=== PATIENT | female | born 1945 | race Caucasian/White ===

== ENCOUNTER 2018-11-15 16:47 | Inpatient (IN) ==
--- NOTE | 2018-11-15 17:11 | Emergency Department Note ---
Disposition Clinical Impression: Frail elderly, Weakness, Hypokalemia, Hyponatremia, Abnormal liver function test, Unable to walk, Elevated TSH Disposition: Admitted As Inpatient Referrals: Maryjane Do DO [Primary Care Provider] - Forms: ED Satisfaction Letter, Work/School Release Time of Disposition: 19:57 General Adult HPI - General Chief complaint: ED General Medical Stated complaint: Legs Giving Out/Not Eating Time Seen by Provider: 11/15/18 17:08 Source: patient, family Limitations: no limitations - History of Present Illness HPI Narrative: 73-year-old female reports emergency department with her son, there is concern for general weakness. She has been progressively weaker for the last 2 weeks. The patient's son went to her house today and was concerned that she was unable to walk too well, they described bilateral lower extremity weakness with progressive fatigue. The patient's son feels she is dehydrated. The patient reports her kidneys are "leaking" describing decreased urine output and darkened urine. There is no history of chest pain acute shortness of breath abdominal pain vomiting or diarrhea. No back pain headache slurred speech unilateral arm or leg weakness or numbness facial drooping dysarthria or fever. There is no history of anticoagulant therapy. No falls or injuries. Generalized weakness is reported. Pain Scale: 0 - Related Data Home Medications Medication Instructions Recorded Confirmed ALPRAZolam [Xanax 0.5 MG Tablet] 0.5 mg PO TID PRN 06/12/15 06/12/15 Acamprosate Calcium 666 mg PO TID 06/12/15 06/12/15 Amlodipine [Amlodipine Besylate] 10 mg PO DAILY 06/12/15 06/12/15 Levothyroxine [Synthroid] 25 mcg PO 0630 06/12/15 06/12/15 Omeprazole [PriLOSEC] 20 mg PO DAILY 06/12/15 06/12/15 Potassium Chloride [Klor-Con 20 meq PO DAILY 06/12/15 06/12/15 Sprinkle] Thiamine HCl 100 mg PO DAILY 06/12/15 06/12/15 traZODone [TraZODone] 50 mg PO HS 06/12/15 06/12/15 Previous Rx's Medication Instructions Recorded Venlafaxine HCl [Venlafaxine HCl 225 mg PO DAILY 30 Days tab.er.24 06/15/15 ER] OxyCODONE/APAP 5/325 [Percocet 2 each PO Q6HR PRN #15 tablet 09/19/15 5/325 MG] Allergies Allergy/AdvReac Type Severity Reaction Status Date / Time promethazine [From Phenergan] AdvReac See Verified 09/19/15 17:40 Comments rofecoxib [From Vioxx] AdvReac See Verified 09/19/15 17:40 Comments All systems ED: reviewed and negative except as stated. Past Medical History - Past Medical History Medical history: Reports: hyperlipidemia, hypertension, thyroid disease Surgical history: Reports: cholecystectomy Psychiatric history: Reports: depression - Social History Smoking Status: Current every day smoker Smokeless Tobacco Status: No Alcohol use: Reports: heavy Drug use: Reports: none Physical Exam - General Limitations: no limitations General appearance: alert, in no apparent distress - Head Head exam: atraumatic, normocephalic, normal inspection - Eye Eye exam: Present: PERRL, EOMI, scleral icterus (Minimal icetrus) - ENT ENT exam: normal exam, normal oropharynx, mucous membranes moist, TM's normal bilaterally, normal external ear exam - Neck Neck exam: Present: normal inspection, full ROM, trachea midline. Absent: tenderness - Chest Chest inspection: Present: symmetric chest wall rise. Absent: tenderness - Respiratory Respiratory exam: Present: normal lung sounds bilaterally. Absent: respiratory distress, prolonged expiratory phase - Cardiovascular Cardiovascular exam: Present: normal rhythm, tachycardia - Abdominal Exam Abdominal exam: Present: soft, Non-Tender, normal bowel sounds. Absent: tenderness, distention, guarding, rebound, rigidity - Extremities Exam Extremities exam: Present: normal inspection, full ROM, normal capillary refill. Absent: tenderness, pedal edema, joint swelling, calf tenderness - Expanded Lower Extremity Exam Neurovascular/Tendon exam: Present: normal capillary refill. Absent: motor deficit, sensory deficit, tendon deficit, extremity cold to touch - Back Exam Back exam: Present: normal inspection, full ROM. Absent: tenderness, CVA tenderness (R), CVA tenderness (L), vertebral tenderness - Neurological Exam Neurological exam: Present: alert, oriented X3, CN II-XII intact - Psychiatric Psychiatric exam: Present: normal affect, normal mood - Skin Skin exam: Present: warm, dry, intact, other (Minimal jaundice) Course Vital Signs Temperature 98.2 F 11/15/18 16:51 Pulse Rate 119 11/15/18 16:51 Respiratory Rate 18 11/15/18 16:51 Blood Pressure 127/82 11/15/18 16:51 O2 Sat by Pulse Oximetry 96 11/15/18 16:51 Temperature 98.2 F 11/15/18 16:51 Pulse Rate 119 11/15/18 16:51 Respiratory Rate 18 11/15/18 16:51 Blood Pressure 127/82 11/15/18 16:51 O2 Sat by Pulse Oximetry 96 11/15/18 16:51 Oxygen Delivery Oxygen Delivery Room Air Medical Decision Making - MDM Narrative Medical decision making narrative: The patient has significant electrolyte abnormalities, potassium 2.5 sodium 125. She also has abnormal liver function tests acetaminophen level negative. Hepatitis panel ordered she has no abdominal pain. The patient has been generally weak and displays no focal defects chest x-ray negative. EKG shows no overt dysrhythmia or ischemia. The patient does not describe chest pain. There is no history of headache convulsion or confusion. She has just felt weak in general. Based on the patient's age, electrolyte abnormalities, inability to walk secondary to weakness, I thought it would be appropriate to admit the patient to the hospital. She and her son are both highly agreeable. I discussed case with the hospitalist on-call who has excepted the patient to his care. Lipase pending. UA pending. - Medical Records Medical records reviewed: Yes I reviewed the patient's medical records. - Lab Data Lab results reviewed: Yes I reviewed the patient's lab results. Result diagrams: 11/15/18 17:21 11/15/18 17:21 Lab Results 11/15/18 11/15/18 11/15/18 Range/Units 17:16 17:21 17:21 WBC 8.7 (4.3-11.1) K/mcL RBC 4.49 (3.82-4.97) M/mcL Hgb 14.3 (11.5-15.4) g/dL Hct 41.4 (35.3-44.9) % MCV 92.2 (83.0-100.0) fL MCH 31.8 (28.0-33.3) pg MCHC 34.5 (31.6-35.5) g/dL RDW 17.9 H (11.5-14.5) % Plt Count 232 (140-400) K/mcL MPV 9.0 L (9.4-12.4) fL Immature Gran % 1.4 (0-4) % Seg Neutrophils % 73.0 % Lymphocytes % 18.8 % Monocytes % 5.0 % Eosinophils % 0.2 % Basophils % 1.6 % Neutrophils # 6.4 (1.6-8.9) K/mcL Lymphocytes # 1.6 (0.6-4.6) K/mcL Monocytes # 0.4 (0.0-1.3) K/mcL Eosinophils # 0.0 (0.0-0.6) K/mcL Basophils # 0.1 (0.0-0.2) K/mcL Nucleated RBCs/100 WBC 1.8 H (0) /100 WBC PT (9.4-12.1) Seconds INR APTT (26.0-36.0) Seconds Sodium 125 L (136-145) mEq/L Potassium 2.5 L* (3.5-5.1) mEq/L Chloride 87 L (98-107) mEq/L Carbon Dioxide 21 L (23-29) mEq/L BUN 9 (8-23) mg/dL Creatinine 0.90 (0.60-1.20) mg/dL Est GFR ( Amer) > 60 (> 60) Est GFR (Non-Af Amer) > 60 (> 60) BUN/Creatinine Ratio 10 (6-26) Glucose 122 H (70-105) mg/dL Calculated Osmolality 260 L (280-300) Lactic Acid 2.9 H (0.5-2.2) mmol/L Calcium 8.9 (8.6-10.3) mg/dL Magnesium 1.6 (1.6-2.6) mg/dL Total Bilirubin 5.5 H (0.3-1.0) mg/dL AST 100 H (13-39) Units/L ALT 70 H (7-52) Units/L Alkaline Phosphatase 257 H (34-104) Units/L Creatine Kinase (30-223) Units/L Troponin I < 0.03 (< 0.04) ng/mL C-Reactive Protein (Less than 10) mg/L Serum Total Protein 6.5 (6.4-8.9) g/dL Albumin 3.3 L (3.5-5.7) g/dL Globulin 3.2 (2.4-3.5) g/dL Albumin/Globulin Ratio 1.0 L (1.1-2.2) TSH (0.340-5.600) mcIU/mL Free T4 (0.70-2.00) ng/dl Acetaminophen (10-20) mcg/mL Hep Bs Antigen (Nonreactive) 11/15/18 11/15/18 11/15/18 Range/Units 17:21 17:21 18:38 WBC (4.3-11.1) K/mcL RBC (3.82-4.97) M/mcL Hgb (11.5-15.4) g/dL Hct (35.3-44.9) % MCV (83.0-100.0) fL MCH (28.0-33.3) pg MCHC (31.6-35.5) g/dL RDW (11.5-14.5) % Plt Count (140-400) K/mcL MPV (9.4-12.4) fL Immature Gran % (0-4) % Seg Neutrophils % % Lymphocytes % % Monocytes % % Eosinophils % % Basophils % % Neutrophils # (1.6-8.9) K/mcL Lymphocytes # (0.6-4.6) K/mcL Monocytes # (0.0-1.3) K/mcL Eosinophils # (0.0-0.6) K/mcL Basophils # (0.0-0.2) K/mcL Nucleated RBCs/100 WBC (0) /100 WBC PT 12.7 H (9.4-12.1) Seconds INR 1.1 APTT 31.3 (26.0-36.0) Seconds Sodium (136-145) mEq/L Potassium (3.5-5.1) mEq/L Chloride (98-107) mEq/L Carbon Dioxide (23-29) mEq/L BUN (8-23) mg/dL Creatinine (0.60-1.20) mg/dL Est GFR ( Amer) (> 60) Est GFR (Non-Af Amer) (> 60) BUN/Creatinine Ratio (6-26) Glucose (70-105) mg/dL Calculated Osmolality (280-300) Lactic Acid (0.5-2.2) mmol/L Calcium (8.6-10.3) mg/dL Magnesium (1.6-2.6) mg/dL Total Bilirubin (0.3-1.0) mg/dL AST (13-39) Units/L ALT (7-52) Units/L Alkaline Phosphatase (34-104) Units/L Creatine Kinase 19 L (30-223) Units/L Troponin I (< 0.04) ng/mL C-Reactive Protein 8 (Less than 10) mg/L Serum Total Protein (6.4-8.9) g/dL Albumin (3.5-5.7) g/dL Globulin (2.4-3.5) g/dL Albumin/Globulin Ratio (1.1-2.2) TSH 17.214 H (0.340-5.600) mcIU/mL Free T4 0.97 (0.70-2.00) ng/dl Acetaminophen < 10 L (10-20) mcg/mL Hep Bs Antigen Nonreactive (Nonreactive) - Radiology Data Radiology results reviewed: Yes I reviewed the patient's radiology results. - EKG Data EKG #1 EKG shows normal: sinus rhythm Rate: tachycardia Rhythm: PVC's, other (Sinus arrhythmia)
[2018-11-15] MEDS ORDERED: 0.9 % Sodium Chloride 1,000 ML IVC ONE (17:31)
[2018-11-15 17:45] LABS: Basophils # 0.1 K/mcL (0.0-0.2); Basophils % 1.6 %; Eosinophils % 0.2 %; Hematocrit 41.4 % (35.3-44.9); Hemoglobin 14.3 g/dL (11.5-15.4); Immature Granulocytes % 1.4 % (0-4); Lymphocytes # 1.6 K/mcL (0.6-4.6); Lymphocytes % 18.8 %; Mean Corpuscular HGB Conc 34.5 g/dL (31.6-35.5); Mean Corpuscular Hemoglobin 31.8 pg (28.0-33.3); Mean Corpuscular Volume 92.2 fL (83.0-100.0); Monocytes # 0.4 K/mcL (0.0-1.3); Neutrophils # 6.4 K/mcL (1.6-8.9); Nucleated Red Blood Cells 1.8 /100 WBC (0); Platelet Count 232 K/mcL (140-400); Red Blood Count 4.49 M/mcL (3.82-4.97); Red Cell Distribution Width 17.9 % (11.5-14.5); White Blood Count 8.7 K/mcL (4.3-11.1)
[2018-11-15 17:52] LABS: INR 1.1; Prothrombin Time 12.7 Seconds (9.4-12.1)
[2018-11-15 17:55] LABS: Activated Partial Thrombo Time 31.3 Seconds (26.0-36.0)
[2018-11-15 18:04] LABS: C-Reactive Protein 8 mg/L (Less than 10); Creatine Kinase 19 Units/L (30-223)
[2018-11-15 18:10] LABS: Alanine Aminotransferase 70 Units/L (7-52); Albumin 3.3 g/dL (3.5-5.7); Alkaline Phosphatase 257 Units/L (34-104); Aspartate Amino Transferase 100 Units/L (13-39); BUN/Creatinine Ratio 10 (6-26); Bilirubin,Total 5.5 mg/dL (0.3-1.0); Blood Urea Nitrogen 9 mg/dL (8-23); Calcium 8.9 mg/dL (8.6-10.3); Carbon Dioxide 21 mEq/L (23-29); Chloride 87 mEq/L (98-107); Globulin 3.2 g/dL (2.4-3.5); Glucose 122 mg/dL (70-105); Magnesium 1.6 mg/dL (1.6-2.6); Osmolality,Calculated 260 (280-300); Potassium 2.5 mEq/L (3.5-5.1); Sodium 125 mEq/L (136-145); Total Protein 6.5 g/dL (6.4-8.9); Troponin I < 0.03 ng/mL (< 0.04); eGFR For African Americans > 60 (> 60); eGFR For Non-African Americans > 60 (> 60)
[2018-11-15 18:17] LABS: Thyroid Stimulating Hormone 17.214 mcIU/mL (0.340-5.600)
[2018-11-15] MEDS ORDERED: Potassium Effervescent 25 MEQ TABLET.EFF PO ONE (18:39)
[2018-11-15 19:17] LABS: Acetaminophen < 10 mcg/mL (10-20)
[2018-11-15 19:45] LABS: Hepatitis B Surface Antigen Nonreactive (Nonreactive)
[2018-11-15 20:14] LABS: Hepatitis C Virus Antibody Nonreactive (Nonreactive)
[2018-11-15 20:15] LABS: Hepatitis B Core IgM Nonreactive (Nonreactive)
[2018-11-15 20:17] LABS: Hepatitis A Antibody IgM Nonreactive (Nonreactive)
[2018-11-15 20:47] LABS: Lipase 24 Units/L (11-82)
[2018-11-16] MEDS ORDERED: Naloxone 0.4 MG/ML INJ IVP PRN (00:27)
[2018-11-16 00:30] LABS: Alanine Aminotransferase 59 Units/L (7-52); Albumin 2.8 g/dL (3.5-5.7); Albumin/Globulin Ratio 1.1 (1.1-2.2); Alkaline Phosphatase 211 Units/L (34-104); Aspartate Amino Transferase 85 Units/L (13-39); BUN/Creatinine Ratio 12 (6-26); Bilirubin,Total 4.9 mg/dL (0.3-1.0); Blood Urea Nitrogen 8 mg/dL (8-23); Carbon Dioxide 24 mEq/L (23-29); Chloride 92 mEq/L (98-107); Globulin 2.5 g/dL (2.4-3.5); Glucose 81 mg/dL (70-105); Osmolality,Calculated 265 (280-300); Potassium 2.8 mEq/L (3.5-5.1); Sodium 129 mEq/L (136-145); Total Protein 5.3 g/dL (6.4-8.9); eGFR For African Americans > 60 (> 60); eGFR For Non-African Americans > 60 (> 60)
--- NOTE | 2018-11-16 00:33 | Internal Med History&Physical ---
Date of Encounter: 11/15/18 Time of Encounter: 22:00 Internal Medicine - H&P: HPI Chief complaint: Weakness Admitted From: Emergency Dept Plans for Post Hospital Care: Home History of present illness: Ms. Salazar is a 73 year old female Patient presented to the emergency room with weakness. She says that her symptoms have been worsening over the last several weeks but she denies falls. She is never had symptoms like this before. She also states that she has not been eating much as there has not been very much food at home. She has also noted darkened urine color as well. She particularly feels weak with ambulation and she will also get short of breath as well. Her son who presents to the emergency room with her feels that she has become dehydrated. In the emergency room patient's initial vital signs: Temperature 98.2, pulse rate 119, Restoril rate 18, blood pressure 127/82, O2 saturation 96 on room air. CBC was within normal limits including platelet count of 232. BMP significant for sodium 125, potassium 2.5, and glucose of 122. INR 1.1 Lactic acid 2.9 Liver function tests were abnormal including a total bilirubin of 5.5, AST of 100, ALT of 70 and alkaline phosphatase of 257. Troponin was undetectable TSH elevated at 17.214 Acetaminophen level less than 10 Lipase 24 Hepatitis panel nonreactive. Chest x-ray showed no acute cardiopulmonary process EKG showed normal sinus rhythm but no ischemic changes Patient was given 1 L of normal saline and 50 mEq of by mouth potassium. She was admitted to the hospital for further management. Upon my evaluation, patient is resting comfortably in the hospital bed in no acute distress. She admits to heavy smoking of about 1 pack per day as well as heavy alcohol use of up to a 12 pack of beer daily. Her last alcoholic beverage however was 6 weeks ago. She has been a heavy drinker for many years. She denies other drug use. She denies chest pain, abdominal pain, nausea, vomiting, diarrhea and constipation. She has noticed dark urine for about 2 or 3 weeks now but no dysuria. She does have scleral icterus on exam, but denies noticing this at home. Her son is at bedside, and denies noticing jaundice as well as scleral icterus. She has a family history significant for heart disease in her brothers as well as cancer of the lung and rectal cancer. Patient is a full code. Past Med Surg Social Fam HX - Past Medical History Medical history: hyperlipidemia, hypertension, thyroid disease Psychiatric history: anxiety, depression - Past Surgical History Surgical History: cholecystectomy - Social History Smoking Status: Current every day smoker Packs per day: 1 Smokeless Tobacco Status: No Alcohol use: heavy Drug use: none - Family History Mother Living Status: Father Living Status: Internal Medicine - H&P: Meds ALPRAZolam [Xanax 0.5 MG Tablet] 0.5 mg PO TID PRN 06/12/15 [History] Amlodipine [Amlodipine Besylate] 10 mg PO DAILY 06/12/15 [History] Levothyroxine [Synthroid] 50 mcg PO 0630 06/12/15 [History] Omeprazole [PriLOSEC] 20 mg PO DAILY 06/12/15 [History] Potassium Chloride [Klor-Con Sprinkle] 20 meq PO DAILY 06/12/15 [History] Thiamine HCl 100 mg PO DAILY 06/12/15 [History] traZODone [TraZODone] 50 mg PO HS 06/12/15 [History] Venlafaxine HCl [Venlafaxine HCl ER] 225 mg PO DAILY 30 Days tab.er.24 06/15/15 [Rx] Allergy/AdvReac Type Severity Reaction Status Date / Time promethazine [From Phenergan] AdvReac See Verified 09/19/15 17:40 Comments rofecoxib [From Vioxx] AdvReac See Verified 09/19/15 17:40 Comments All Systems PM: A 10-system review of systems was performed and is negative for pertinent findings except as documented above in the HPI. - Constitutional Vitals: Temp Pulse Resp BP Pulse Ox 97.6 F 99 16 147/78 100 11/15/18 23:15 11/15/18 23:15 11/15/18 23:15 11/15/18 23:15 11/15/18 23:15 General appearance: Present: cooperative, A&O X 3, pleasant, no acute distress, answers questions appropriately Exam: - - Head Head exam: Present: normal inspection - Eye Eye exam: Present: EOMI, normal appearance, scleral icterus. Absent: sclera anicteric - Neck Neck exam general surgery: Present: full ROM - Respiratory Respiratory exam: Present: CTAB. Absent: rales, respiratory distress, rhonchi, wheezes - Cardiovascular Cardiovascular exam: Present: RRR. Absent: diastolic murmur, systolic murmur - GI/Abdominal GI/Abdominal exam: Present: normal bowel sounds, soft. Absent: tenderness - Extremities Exam Extremities exam: Present: warm, radial pulses palpable and symmetrical. Absent: calf tenderness, pedal edema, tenderness - Neurological Exam Neurological exam: Present: no focal deficits, strengths equal and symetr throughout. Absent: motor sensory deficit, facial droop, speech deficit - Skin Skin exam: Present: dry, normal color, warm Additional comments: Non-jaundiced skin appearance Internal Med - H&P Results - Labs CBC & Chem 7: 11/15/18 17:21 11/15/18 21:46 Labs: Short CBC 11/15/18 Range/Units 17:21 WBC 8.7 (4.3-11.1) K/mcL Hgb 14.3 (11.5-15.4) g/dL Hct 41.4 (35.3-44.9) % Plt Count 232 (140-400) K/mcL Neutrophils # 6.4 (1.6-8.9) K/mcL BMP 11/15/18 11/15/18 17:21 21:46 Sodium 125 L 129 L Potassium 2.5 L* 2.8 L Chloride 87 L 92 L Carbon Dioxide 21 L 24 BUN 9 8 Creatinine 0.90 0.68 Glucose 122 H 81 Calcium 8.9 8.0 L Cardiac Enzymes 11/15/18 Range/Units 17:21 Troponin I < 0.03 (< 0.04) ng/mL Liver Function 11/15/18 11/15/18 Range/Units 17:21 21:46 Total Bilirubin 5.5 H 4.9 H (0.3-1.0) mg/dL AST 100 H 85 H (13-39) Units/L ALT 70 H 59 H (7-52) Units/L Alkaline Phosphatase 257 H 211 H (34-104) Units/L Albumin 3.3 L 2.8 L (3.5-5.7) g/dL - Impressions ITS Impressions Chest X-Ray 11/15/18 17:08 IMPRESSION: No acute cardiopulmonary process. D/ / Teofilo Villaseñor MD / Teofilo Villaseñor MD Interpreting Provider: Teofilo Villaseñor MD - Assessment and Plan (1) Weakness Current Visit: Yes Status: Acute Assessment and plan: Likely secondary to malnutrition and not caring for self at home. Patient has not been taking her meds as prescribed. PT OT consult in the morning Nutrition consult in the morning emergency medical services coordinator consult in the morning Hold off on further IV fluids until urine specimen obtained. (2) Frail elderly Current Visit: Yes Status: Acute Assessment and plan: Patient has long history of smoking and alcohol use. She has not been taking her medicines and she has been not eating at home due to inability to obtain food according to the patient. PT OT consult in the morning Nutrition consult in the morning emergency medical services coordinator consult in the morning (3) Hypokalemia Current Visit: Yes Status: Acute Assessment and plan: Likely secondary to malnutrition. Patient's potassium level was 2.5 in the emergency room. She received 50 mEq of oral potassium and has corrected to 2.8. Magnesium level 1.6. Continue potassium supplementation Cardiac monitoring Repeat potassium level in the morning (4) Hyponatremia Current Visit: Yes Status: Acute Assessment and plan: Likely secondary to beer potable sergio and malnutrition. Patient received 1 L of IV fluids in the emergency room. She has not been able to give a urine specimen yet. Repeat sodium was 129 from 125. Continue to monitor sodium Hold off on IV fluid hydration until patient gives urine specimen Check urine sodium and urine osmolality Avoid correcting sodium level more than 8 points in a 24-hour period. (5) Abnormal liver function test Current Visit: Yes Status: Acute Assessment and plan: Likely secondary to chronic alcohol use, last labs from 2016 were within normal limits. Patient has scleral icterus on exam. Right upper quadrant ultrasound in the morning Consider GI consultation Continue to monitor liver function tests (6) Chronic alcohol dependence, continuous Current Visit: No Status: Acute Assessment and plan: Patient has long history of alcohol use, states her last drink was 6 weeks ago. We will continue to monitor closely for signs of withdrawal but hold off on CIWA for now. Start CIWA protocol if signs of withdrawal develop (7) Nicotine use disorder Current Visit: Yes Status: Acute Assessment and plan: Nicotine patch (8) Hypoalbuminemia Current Visit: No Status: Acute Assessment and plan: Secondary to poor by mouth intake and alcoholism. Patient also possibly has alcoholic liver damage. Nutrition consult in the morning (9) DVT prophylaxis Current Visit: No Status: Acute Assessment and plan: Subcutaneous heparin - Time Spent With Patient Total time spent is greater than 50% in coordination of care (as documented) at patient's floor/unit and/or counseling patient: Greater than 35 minutes
[2018-11-16] MEDS ORDERED: Potassium Effervescent 25 MEQ TABLET.EFF PO ONE ×2 (00:50→12:07)
[2018-11-16] MEDS: Nicotine 21 MG PATCH.TD24 TD SCH (01:57)
[2018-11-16] MEDS: *HR* Heparin 5,000 UNIT/ML VIAL SQ SCH ×2 (06:49→17:22)
[2018-11-16 07:28] LABS: Bilirubin,Urine Large (Negative); Blood,Urine Moderate (Negative); Glucose,Urine (UA) Normal (Normal); Ketones,Urine Trace mg/dL (Negative); Leukocyte Esterase,Urine Trace (Negative); Nitrite,Urine Negative (Negative); Protein,Urine Negative (Neg-Trace); Specific Gravity,Urine 1.009 (1.010-1.025); Urobilinogen,Urine >=8.0 mg/dL (Normal)
[2018-11-16 07:30] LABS: Hyaline Casts,Urine None Seen per lpf (None-Few); RBC,Urine 0-3 per hpf (0-3); Squamous Epithelial Cell,Urine Many per lpf (None-Few)
[2018-11-16 07:32] LABS: Clarity,Urine Slightly Cloudy (Clear); Color,Urine Dark Yellow (Yellow)
[2018-11-16 08:12] LABS: Bacteria,Urine Many per hpf (None-Few)
[2018-11-16 09:50] LABS: Hematocrit 35.8 % (35.3-44.9); Hemoglobin 12.8 g/dL (11.5-15.4); Mean Corpuscular HGB Conc 35.8 g/dL (31.6-35.5); Mean Corpuscular Hemoglobin 32.7 pg (28.0-33.3); Mean Corpuscular Volume 91.3 fL (83.0-100.0); Mean Platelet Volume 9.3 fL (9.4-12.4); Platelet Count 224 K/mcL (140-400); Red Blood Count 3.92 M/mcL (3.82-4.97); Red Cell Distribution Width 17.9 % (11.5-14.5); White Blood Count 7.8 K/mcL (4.3-11.1)
[2018-11-16 09:57] LABS: INR 1.1; Prothrombin Time 12.9 Seconds (9.4-12.1)
[2018-11-16 10:15] LABS: Alanine Aminotransferase 60 Units/L (7-52); Albumin 2.9 g/dL (3.5-5.7); Albumin/Globulin Ratio 1.2 (1.1-2.2); Alkaline Phosphatase 215 Units/L (34-104); Aspartate Amino Transferase 82 Units/L (13-39); BUN/Creatinine Ratio 12 (6-26); Blood Urea Nitrogen 8 mg/dL (8-23); Calcium 8.3 mg/dL (8.6-10.3); Carbon Dioxide 25 mEq/L (23-29); Chloride 94 mEq/L (98-107); Globulin 2.5 g/dL (2.4-3.5); Glucose 112 mg/dL (70-105); Osmolality,Calculated 263 (280-300); Potassium 3.5 mEq/L (3.5-5.1); Sodium 127 mEq/L (136-145); Total Protein 5.4 g/dL (6.4-8.9); eGFR For African Americans > 60 (> 60); eGFR For Non-African Americans > 60 (> 60)
--- NOTE | 2018-11-16 13:49 | Internal Med Progress Note ---
<Alyse Melton - Last Filed: 11/16/18 14:38> Hospitalist Progress Note - Encounter Date of Encounter: 11/16/18 - Exam Vitals: Temp Pulse Resp BP Pulse Ox 98 F 79 16 127/97 94 11/16/18 12:08 11/16/18 12:08 11/16/18 12:08 11/16/18 12:08 11/16/18 12:08 - Assessment and Plan (1) Hyponatremia Current Visit: Yes Status: Acute (2) Hypokalemia Current Visit: Yes Status: Acute (3) Chronic alcohol dependence, continuous Current Visit: No Status: Acute (4) DVT prophylaxis Current Visit: No Status: Acute (5) Hypoalbuminemia Current Visit: No Status: Acute (6) Frail elderly Current Visit: Yes Status: Acute (7) Weakness Current Visit: Yes Status: Acute (8) Abnormal liver function test Current Visit: Yes Status: Acute (9) Nicotine use disorder Current Visit: Yes Status: Acute - Time Spent with Patient Total time spent is greater than 50% in coordination of care (as documented) at patient's floor/unit and/or counseling patient: Internal Medicine: Result - Labs CBC & Chem 7: 11/16/18 09:27 11/16/18 09:27 Labs: Short CBC 11/15/18 11/16/18 Range/Units 17:21 09:27 WBC 8.7 7.8 (4.3-11.1) K/mcL Hgb 14.3 12.8 D (11.5-15.4) g/dL Hct 41.4 35.8 (35.3-44.9) % Plt Count 232 224 (140-400) K/mcL Neutrophils # 6.4 (1.6-8.9) K/mcL BMP 11/15/18 11/15/18 11/16/18 17:21 21:46 09:27 Sodium 125 L 129 L 127 L Potassium 2.5 L* 2.8 L 3.5 Chloride 87 L 92 L 94 L Carbon Dioxide 21 L 24 25 BUN 9 8 8 Creatinine 0.90 0.68 0.68 Glucose 122 H 81 112 H Calcium 8.9 8.0 L 8.3 L Cardiac Enzymes 11/15/18 Range/Units 17:21 Troponin I < 0.03 (< 0.04) ng/mL Liver Function 11/15/18 11/15/18 11/16/18 Range/Units 17:21 21:46 09:27 Total Bilirubin 5.5 H 4.9 H 4.0 H (0.3-1.0) mg/dL AST 100 H 85 H 82 H (13-39) Units/L ALT 70 H 59 H 60 H (7-52) Units/L Alkaline Phosphatase 257 H 211 H 215 H (34-104) Units/L Albumin 3.3 L 2.8 L 2.9 L (3.5-5.7) g/dL Urine 11/16/18 Range/Units 07:00 Urine Color Dark Yellow (Yellow) Urine Clarity Slightly Cloudy A (Clear) Urine pH 6.0 (5.0-8.0) pH Units Ur Specific [place] 1.009 L (1.010-1.025) Urine Protein Negative (Neg-Trace) mg/dL Urine Glucose (UA) Normal (Normal) mg/dL - ABG Interpretation ABG results: PT/INR, D-dimer PT 12.9 Seconds (9.4-12.1) H 11/16/18 09:27 - Impressions Impressions Chest X-Ray 11/15/18 17:08 IMPRESSION: No acute cardiopulmonary process. D/ / Teofilo Villaseñor MD / Teofilo Villaseñor MD Interpreting Provider: Teofilo Villaseñor MD Liver Ultrasound 11/16/18 09:00 IMPRESSION: 1. Hepatic steatosis is present. 2. Mildly irregular appearance of the hepatic capsule, suggestive of hepatic fibrosis or early cirrhosis. 3. Status post cholecystectomy. D/ / 11/16/2018 09:28:56 Zackary Hatfield MD / tristan Interpreting Provider: Zackary Hatfield MD Consult Discharge Plan - Plan Referrals: Maryjane Do DO [Primary Care Provider] - - Attending Attestation I examined this patient and my medical decision-making was reviewed with the Resident Physician Dr Castano. I agree with the documented findings, disposition and treatment plan as described except to the extent set forth below. Ms Salazar is admitted with dehydration, hyponatremia, malnutrition and generalized weakness awake, son at bedside. has not been eating or drinking at home due to not having anything to eat or drink. denies gi sxs as cause of poor intake. Describes dif ficulty walking due to generalized leg weakness, denies focal weakness, numbness or tingling. stating hse hasn't had beer in 6 weeks. Son at bedside notes she is at her baseline mental status but seems tired and less energetic. He was unaware she wasn't eating. She admits she has not been taking her synthroid gen- alert, awake,appears stated age eyes- pupils equal round, + scleral icterus cv- reg rate and rhythm, normal s1,s2, no murmurs appreciated, no le edema lungs- ctabl, no wheezing, rhonchi or crackles, normal resp effort on room air abd- soft, non tender, non distended, + bs, no HSM appreciated neuro- AAOx3, CN grossly intact, strength 5/5 throughout all ext, sensation to lt touch intact and equal throughout all ext Generalized weakness likley related to poor oral intake, dehydration/malnutrition and likley complicated by uncontrolled hypothroidism due to medication non compliance -pt/ot/sw/nutrition consulted, gentle ivfs today with Na level monitoring, resume synthroid Hyponatremia suspect 2/2 poor oral intake, hypovolemic hyponatremia also component of uncontrolled hypothyroidism -goal Na 133 or less by this evening, give gentle IVFs, q 4 h Na checks to avoid over correction Hypoakalemia- resolved with repletion, repeat Mag level in am Abnormal LFTs with t bili and transaminase elevation, low protein but normal INR RUQ US reviewed- suspect early cirrhosis given etoh use, no choledocholithiasis noted Hep panel neg, acetaminophen neg, does not use ASA at home -consult gi for further work up/tx recs Hypothyroidism- cont home synthroid dose as hasn't been taking, repeat level outpt with pcp for adjustments. etoh abuse- stating sober x6 weeks, monitor for s/s of etoh withdrawal in case this timeline is not accurate, oral supplements further dx and plan as noted by resident <Christina Castano - Last Filed: 11/17/18 06:35> Hospitalist Progress Note - Encounter Date of Encounter: 11/17/18 Time of Encounter: 13:48 - Subjective Interval History: Seen and examined this morning at bedside. Patient's son is present in room. Appears comfortable resting in bed. States she came to hospital because she's felt weak for awhile now and it just wasn't getting better, so decided to get checked out. Her son reports people from patient's apartment had called him with concerns that his mother was acting disoriented and confused. Admits to history of EtOH abuse, states she last drank 6 weeks ago. Denies having gone through withdrawal symptoms during this period of time, states she slowly took herself off alcohol. Denies feeling anxious or jittery at this time, no tremors. - Exam Vitals: Temp Pulse Resp BP Pulse Ox 98 F 79 16 127/97 94 11/16/18 12:08 11/16/18 12:08 11/16/18 12:08 11/16/18 12:08 11/16/18 12:08 Exam: Gen: no acute distress, appears stated age HEENT: normocephalic/atraumatic, EOMI, no scleral icterus Neck: supple, no LAD Cardio: RRR, no murmurs, +s1 and s2, no peripheral edema Pulm: CTAB, equal chest rise, no wheezes/rhonchi/rales Abd: soft, nontender, nondistended, active bowel sounds Ext: No visible deformities, no LE swelling, acyanotic, Neuro: Alert, oriented x 3, answers questions appropriately, no focal neuro deficits, CN II-XII grossly intact, moves all extremities spontaneously, no tremors Psych: doesn't appear anxious or agitated, poor eye contact, constricted affect, cooperative - Assessment and Plan (1) Weakness Current Visit: Yes Status: Acute Assessment and Plan: Most likely d/t poor oral intake, suspect this is compounded by uncontrolled hypothyroidism given that patient admits to not taking levothyroxine as prescribed and TSH found to be elevated on labs. Will restart TSH. PT/OT consulted. Nutrition consulted. (2) Hyponatremia Current Visit: Yes Status: Acute Assessment and Plan: Suspect primarily related to poor PO intake/nutritional status. Sodium 125 on admission, received 1L normal saline fluid bolus in ED. No focal neuro deficits on exam. Will avoid correcting sodium level more than 8 points in a 24-hour period. Slow infusion 1L NS at rate 75 mL/hr with sodium checks Q4H. (3) Abnormal liver function test Current Visit: Yes Status: Acute Assessment and Plan: Transaminitis, elevated total bilirubin, low protein Platelets and INR within normal limits RUQ US shows irregular appearing liver capsule suggesting hepatic fibrosis or early cirrhosis; s/p cholecystectomy Hepatitis panel non-reactive APAP level negative GI consult placed, recommendations appreciated (4) Chronic alcohol dependence, continuous Current Visit: Yes Status: Chronic Assessment and Plan: Reports last alcohol use 6 weeks ago, will start CIWA protocol for patient's safety and monitor for signs/symptoms of withdrawal Start daily multivitamin, thiamine, folate supplements (5) Hypokalemia Current Visit: Yes Status: Acute Assessment and Plan: Potassium 2.5 on admission, corrected to 3.5 after oral potassium repletion. Suspect this is related to poor PO intake, no thiazide diuretic on home med list. Magnesium level was at lower limit of normal (1.6) on admission, will replete and recheck in AM. Cardiac monitoring. (6) Hypoalbuminemia Current Visit: Yes Status: Acute Assessment and Plan: Suspect d/t poor diet/PO intake. Consult placed to nutrition. (7) Elevated TSH Current Visit: Yes Status: Acute Assessment and Plan: TSH 17.2 Free T4 of 0.97 Admits to not taking levothyroxine as prescribed May be contributing to depressed mood, poor appetite Restart home dose levothyroxine, will need repeat TSH in 8 weeks (8) Frail elderly Current Visit: Yes Status: Acute - Time Spent with Patient Total time spent is greater than 50% in coordination of care (as documented) at patient's floor/unit and/or counseling patient: Internal Medicine: Result - Labs CBC & Chem 7: 11/17/18 05:51 11/17/18 00:14 Labs: Short CBC 11/15/18 11/16/18 Range/Units 17:21 09:27 WBC 8.7 7.8 (4.3-11.1) K/mcL Hgb 14.3 12.8 D (11.5-15.4) g/dL Hct 41.4 35.8 (35.3-44.9) % Plt Count 232 224 (140-400) K/mcL Neutrophils # 6.4 (1.6-8.9) K/mcL BMP 0611/15/18 11/16/18 17:21 21:46 09:27 Sodium 125 L 129 L 127 L Potassium 2.5 L* 2.8 L 3.5 Chloride 87 L 92 L 94 L Carbon Dioxide 21 L 24 25 BUN 9 8 8 Creatinine 0.90 0.68 0.68 Glucose 122 H 81 112 H Calcium 8.9 8.0 L 8.3 L Cardiac Enzymes 11/15/18 Range/Units 17:21 Troponin I < 0.03 (< 0.04) ng/mL Liver Function 11/15/18 11/15/18 11/16/18 Range/Units 17:21 21:46 09:27 Total Bilirubin 5.5 H 4.9 H 4.0 H (0.3-1.0) mg/dL AST 100 H 85 H 82 H (13-39) Units/L ALT 70 H 59 H 60 H (7-52) Units/L Alkaline Phosphatase 257 H 211 H 215 H (34-104) Units/L Albumin 3.3 L 2.8 L 2.9 L (3.5-5.7) g/dL Urine 11/16/18 Range/Units 07:00 Urine Color Dark Yellow (Yellow) Urine Clarity Slightly Cloudy A (Clear) Urine pH 6.0 (5.0-8.0) pH Units Ur Specific [place] 1.009 L (1.010-1.025) Urine Protein Negative (Neg-Trace) mg/dL Urine Glucose (UA) Normal (Normal) mg/dL - ABG Interpretation ABG results: PT/INR, D-dimer PT 12.9 Seconds (9.4-12.1) H 11/16/18 09:27 - Impressions Impressions Chest X-Ray 11/15/18 17:08 IMPRESSION: No acute cardiopulmonary process. D/ / Teofilo Villaseñor MD / Teofilo Villaseñor MD Interpreting Provider: Teofilo Villaseñor MD Liver Ultrasound 11/16/18 09:00
[2018-11-16] MEDS: 0.9 % Sodium Chloride 1,000 ML IVC SCH (14:57)
[2018-11-16] MEDS ORDERED: *HR* LORazepam 2 MG/ML VIAL IVP PRN ×3 (16:18)
--- NOTE | 2018-11-16 16:46 | Electrocardiograph Report ---
[place] [id number] Test Date: 2018-11-15 Pat Name: Yarely Salazar Department: [id number] Room: 2NE32 Gender: F [employer]ic: : [id number] Requested By: Sam Randhawa Order Number: [id number] Reading MD: Roly Castro Measurements Intervals [place] Rate: 108 P: 52 MT: 162 QRS: 4 QRSD: 79 T: -17 QT: 350 QTc: 470 Interpretive Statements Sinus arrhythmia, PVC Ventricular premature complex Electronically Signed On 11-16-2018 16:44:16 EDT by Roly Castro
[2018-11-16] MEDS: traZODone 50 MG TABLET PO SCH (21:47)
[2018-11-17] MEDS: Nicotine 21 MG PATCH.TD24 TD SCH ×2 (00:17→23:24)
[2018-11-17] MEDS: 0.9 % Sodium Chloride 1,000 ML IVC SCH (04:23)
[2018-11-17] MEDS: Levothyroxine 25 MCG TABLET PO SCH (06:11)
[2018-11-17] MEDS: *HR* Heparin 5,000 UNIT/ML VIAL SQ SCH ×2 (06:11→18:19)
[2018-11-17 06:18] LABS: Basophils # 0.1 K/mcL (0.0-0.2); Basophils % 1.6 %; Eosinophils # 0.1 K/mcL (0.0-0.6); Eosinophils % 1.1 %; Hematocrit 33.5 % (35.3-44.9); Hemoglobin 11.5 g/dL (11.5-15.4); Immature Granulocytes % 1.3 % (0-4); Lymphocytes # 2.2 K/mcL (0.6-4.6); Lymphocytes % 35.9 %; Mean Corpuscular HGB Conc 34.3 g/dL (31.6-35.5); Mean Corpuscular Hemoglobin 32.8 pg (28.0-33.3); Mean Corpuscular Volume 95.4 fL (83.0-100.0); Mean Platelet Volume 9.2 fL (9.4-12.4); Monocytes # 0.7 K/mcL (0.0-1.3); Monocytes % 10.6 %; Neutrophils # 3.1 K/mcL (1.6-8.9); Platelet Count 178 K/mcL (140-400); Red Blood Count 3.51 M/mcL (3.82-4.97); Segmented Neutrophils % 49.5 %; White Blood Count 6.2 K/mcL (4.3-11.1)
[2018-11-17 06:39] LABS: Alanine Aminotransferase 48 Units/L (7-52); Albumin 2.7 g/dL (3.5-5.7); Albumin/Globulin Ratio 1.1 (1.1-2.2); Alkaline Phosphatase 192 Units/L (34-104); Aspartate Amino Transferase 63 Units/L (13-39); BUN/Creatinine Ratio 10 (6-26); Bilirubin,Total 2.9 mg/dL (0.3-1.0); Blood Urea Nitrogen 5 mg/dL (8-23); Calcium 7.8 mg/dL (8.6-10.3); Carbon Dioxide 26 mEq/L (23-29); Chloride 93 mEq/L (98-107); Globulin 2.4 g/dL (2.4-3.5); Glucose 101 mg/dL (70-105); Magnesium 1.5 mg/dL (1.6-2.6); Osmolality,Calculated 273 (280-300); Potassium 3.4 mEq/L (3.5-5.1); Sodium 133 mEq/L (136-145); Total Protein 5.1 g/dL (6.4-8.9); eGFR For African Americans > 60 (> 60); eGFR For Non-African Americans > 60 (> 60)
[2018-11-17] MEDS: Folic Acid 1 MG TABLET PO SCH (07:50)
[2018-11-17] MEDS: Multivit/Ca/Min/Fe/FA 1 TAB TABLET PO SCH (07:50)
--- NOTE | 2018-11-17 07:56 | Internal Med Progress Note ---
<YuliaeddieEan joyce - Last Filed: 11/17/18 14:01> Hospitalist Progress Note - Encounter Date of Encounter: 11/17/18 Time of Encounter: 08:20 - Subjective Interval History: When seen today patient denied any abdominal pain, nausea, or vomiting. She tells me that her decreased by mouth intake at home was due to not having any access to food due to being financially restricted recently. Patient says that she lives alone. Son was present in the room and inform me that he had not heard from his mother for 3 weeks. She denies any chest pain or shortness of breath. Denies any fever. Denies any cough. Denies any lower extremity swelling. - Exam Vitals: Temp Pulse Resp BP Pulse Ox 97.9 F 88 14 130/91 95 11/17/18 06:00 11/17/18 06:00 11/17/18 06:00 11/17/18 06:00 11/17/18 06:00 Exam: GENERAL APPEARANCE: Obese, alert and cooperative, and appears to be in no acute distress. HEAD: normocephalic. EYES: PERRL, EOMI. Fundi normal, vision is grossly intact. No scleral icterus. EARS: Hearing grossly intact. NOSE: No nasal discharge. THROAT: Oral cavity and pharynx normal. No inflammation, swelling, exudate, or lesions. NECK: Neck supple, non-tender without lymphadenopathy, masses or thyromegaly. CARDIAC: Normal S1 and S2. No S3, S4 or murmurs. Rhythm is regular. There is no peripheral edema, cyanosis or pallor. Extremities are warm and well perfused. Capillary refill is less than 2 seconds. No carotid bruits. LUNGS: Clear to auscultation and percussion without rales, rhonchi, wheezing or diminished breath sounds. ABDOMEN: Positive bowel sounds. Soft, nondistended, nontender. No guarding or rebound. No masses. MUSKULOSKELETAL: No joint erythema or tenderness. Normal muscular development. EXTREMITIES: No significant deformity or joint abnormality. No edema. Peripheral pulses intact. No varicosities. 5 out of 5 strength in upper and lower extremities. SKIN: Skin normal color, texture and turgor with no lesions or eruptions. No jaundice. PSYCHIATRIC: The mental examination revealed the patient was oriented to person, place, and time. - Assessment and Plan (1) Weakness Current Visit: Yes Status: Acute Assessment and Plan: Most likely d/t poor oral intake, suspect this is compounded by uncontrolled hypothyroidism given that patient admits to not taking levothyroxine as prescribed and TSH found to be elevated on labs. PT/OT consulted. Nutrition consulted. 11/17/18: Patient demonstrating good PO intake. Plan: - Continue with ensure diet. - Discontinue IV fluids - Continue with PT/OT. (2) Hyponatremia Current Visit: Yes Status: Acute Assessment and Plan: Suspect primarily related to poor PO intake/nutritional status. Sodium 125 on admission, received 1L normal saline fluid bolus in ED. No focal neuro deficits on exam. Will avoid correcting sodium level more than 8 points in a 24-hour period. Slow infusion 1L NS at rate 75 mL/hr with sodium checks Q4H. 11/17/18: Sodium level has improved to 133 from 130 yesterday. No gross neurologic symptoms on exam. Plan: - Discontinue IV fluids. Patient demonstrating good by mouth intake. - Continue to monitor sodium levels. (3) Abnormal liver function test Current Visit: Yes Status: Acute Assessment and Plan: Transaminitis, elevated total bilirubin, low protein Platelets and INR within normal limits RUQ US shows irregular appearing liver capsule suggesting hepatic fibrosis or early cirrhosis; s/p cholecystectomy Hepatitis panel non-reactive APAP level negative GI consult placed, recommendations appreciated 11/17/18: GI recommends complete liver workup (AFP, alpha-1 antitrypsin, AVDIM, ANCA, ceruloplasmin, F actin, ferritin, AMA, fibrosis score). (4) Hepatic steatosis Current Visit: Yes Status: Acute Assessment and Plan: GI recommends moderate caloric restriction of 500-700 Kcal/day and to eliminate or significantly reduce saturated fatty acids and high fructose corn syrup from diet. Chest X-Ray 11/15/18 17:08 IMPRESSION: No acute cardiopulmonary process. D/ / Teofilo Villaseñor MD / Teofilo Villaseñor MD Interpreting Provider: Teofilo Villaseñor MD Liver Ultrasound 11/16/18 09:00 IMPRESSION: 1. Hepatic steatosis is present. 2. Mildly irregular appearance of the hepatic capsule, suggestive of hepatic fibrosis or early cirrhosis. 3. Status post cholecystectomy. D/ / 11/16/2018 09:28:56 Zackary Hatfield MD / tristan Interpreting Provider: Zackary Hatfield MD (5) Chronic alcohol dependence, continuous Current Visit: Yes Status: Chronic Assessment and Plan: Reports last alcohol use 6 weeks ago, will start CIWA protocol for patient's safety and monitor for signs/symptoms of withdrawal. Plan: - C/W daily multivitamin, thiamine, folate supplements. - C/W CIWA protocol. (6) Hypokalemia Current Visit: Yes Status: Acute Assessment and Plan: Potassium 2.5 on admission, corrected to 3.5 after oral potassium repletion. Suspect this is related to poor PO intake, no thiazide diuretic on home med list. Magnesium level was at lower limit of normal (1.6) on admission. 11/17/18: Mg level low at 1.5. Potassium level at 3.4. Plan: - MgOx 400 mg PO daily. - Recheck magnesium in AM. (7) Hypomagnesemia Current Visit: Yes Status: Acute Assessment and Plan: See plan above. (8) Hypoalbuminemia Current Visit: Yes Status: Acute Assessment and Plan: Suspect d/t poor diet/PO intake. Consult placed to nutrition. (9) Elevated TSH Current Visit: Yes Status: Acute Assessment and Plan: TSH 17.2 Free T4 of 0.97 Admits to not taking levothyroxine as prescribed May be contributing to depressed mood, poor appetite Plan: - C/W home dose levothyroxine, will need repeat TSH in 8 weeks. (10) Frail elderly Current Visit: Yes Status: Acute DVT Prophylaxis: - Heparin subcutaneous. - Time Spent with Patient Total time spent is greater than 50% in coordination of care (as documented) at patient's floor/unit and/or counseling patient: Internal Medicine: Result - Labs CBC & Chem 7: 11/17/18 05:51 11/17/18 05:51 Labs: Short CBC 11/16/18 11/17/18 Range/Units 09:27 05:51 WBC 7.8 6.2 (4.3-11.1) K/mcL Hgb 12.8 D 11.5 (11.5-15.4) g/dL Hct 35.8 33.5 L (35.3-44.9) % Plt Count 224 178 (140-400) K/mcL Neutrophils # 3.1 (1.6-8.9) K/mcL BMP 11/16/18 11/16/18 11/16/18 09:27 15:43 19:40 Sodium 127 L 125 L 130 L Potassium 3.5 Chloride 94 L Carbon Dioxide 25 BUN 8 Creatinine 0.68 Glucose 112 H Calcium 8.3 L 11/17/18 11/17/18 00:14 05:51 Sodium 132 L 133 L Potassium 3.4 L Chloride 93 L Carbon Dioxide 26 BUN 5 L Creatinine 0.52 L Glucose 101 Calcium 7.8 L Liver Function 11/16/18 11/17/18 Range/Units 09:27 05:51 Total Bilirubin 4.0 H 2.9 H (0.3-1.0) mg/dL AST 82 H 63 H (13-39) Units/L ALT 60 H 48 (7-52) Units/L Alkaline Phosphatase 215 H 192 H (34-104) Units/L Albumin 2.9 L 2.7 L (3.5-5.7) g/dL - ABG Interpretation ABG results: PT/INR, D-dimer PT 12.9 Seconds (9.4-12.1) H 11/16/18 09:27 - Impressions Impressions Liver Ultrasound 11/16/18 09:00 IMPRESSION: 1. Hepatic steatosis is present. 2. Mildly irregular appearance of the hepatic capsule, suggestive of hepatic fibrosis or early cirrhosis. 3. Status post cholecystectomy. D/ / 11/16/2018 09:28:56 Zackary Hatfield MD / tristan Interpreting Provider: Zackary Hatfield MD Consult Discharge Plan - Plan Referrals: Maryjane Do, [Primary Care Provider] - <Alyse Melton - Last Filed: 11/17/18 14:29> Hospitalist Progress Note - Encounter Date of Encounter: 11/17/18 - Exam Vitals: Temp Pulse Resp BP Pulse Ox 97.9 F 97 16 127/105 93 11/17/18 12:26 11/17/18 12:26 11/17/18 12:26 11/17/18 12:26 11/17/18 12:26 - Assessment and Plan (1) Hyponatremia Current Visit: Yes Status: Acute (2) Hypokalemia Current Visit: Yes Status: Acute (3) Chronic alcohol dependence, continuous Current Visit: Yes Status: Chronic (4) DVT prophylaxis Current Visit: No Status: Acute (5) Hypoalbuminemia Current Visit: Yes Status: Acute (6) Frail elderly Current Visit: Yes Status: Acute (7) Weakness Current Visit: Yes Status: Acute (8) Abnormal liver function test Current Visit: Yes Status: Acute (9) Nicotine use disorder Current Visit: Yes Status: Acute - Time Spent with Patient Total time spent is greater than 50% in coordination of care (as documented) at patient's floor/unit and/or counseling patient: Internal Medicine: Result - Labs CBC & Chem 7: 11/17/18 05:51 11/17/18 05:51 Labs: Short CBC 11/17/18 Range/Units 05:51 WBC 6.2 (4.3-11.1) K/mcL Hgb 11.5 (11.5-15.4) g/dL Hct 33.5 L (35.3-44.9) % Plt Count 178 (140-400) K/mcL Neutrophils # 3.1 (1.6-8.9) K/mcL BMP 11/16/18 11/16/18 11/17/18 15:43 19:40 00:14 Sodium 125 L 130 L 132 L Potassium Chloride Carbon Dioxide BUN Creatinine Glucose Calcium 11/17/18 05:51 Sodium 133 L Potassium 3.4 L Chloride 93 L Carbon Dioxide 26 BUN 5 L Creatinine 0.52 L Glucose 101 Calcium 7.8 L Liver Function 11/17/18 Range/Units 05:51 Total Bilirubin 2.9 H (0.3-1.0) mg/dL AST 63 H (13-39) Units/L ALT 48 (7-52) Units/L Alkaline Phosphatase 192 H (34-104) Units/L Albumin 2.7 L (3.5-5.7) g/dL - ABG Interpretation ABG results: PT/INR, D-dimer PT 12.9 Seconds (9.4-12.1) H 11/16/18 09:27 - Attending Attestation I examined this patient and my medical decision-making was reviewed with the Resident Physician Dr Brown. I agree with the documented findings, disposition and treatment plan as described except to the extent set forth below. Ms Salazar is admitted with dehydration, hyponatremia, malnutrition and generalized weakness awake, son at bedside. eating and drinking. generalized weakness improving. discussed SNF placement and they will discuss with SW gen- alert, awake,appears stated age eyes- pupils equal round, no scleral icterus cv- reg rate and rhythm, no le edema lungs- ctabl, normal resp effort on room air abd- soft, non tender, non distended neuro- AAOx3, CN grossly intact, strength 5/5 throughout all ext Hyponatremia- improved with VFs, monitor off fluids, cont oral intake Early Liver Cirrhosis Abnormal LFTs - appreciate GI recs, labs pending, will fu outpt Etoh Abuse not in withdrawal- ciwa and vitamin supplements Hypothyroidism, elevated TSH due to non compliance with medication- resumed home dosing, fu with PCP outpt for recheck of lab further diagnoses and plan as noted by resident dispo- SW working on placement
[2018-11-17] MEDS ORDERED: Potassium Effervescent 25 MEQ TABLET.EFF PO ONE ×2 (10:20→11:45)
[2018-11-17] MEDS: Magnesium Oxide 400 MG TABLET PO SCH (11:45)
[2018-11-17] MEDS: Thiamine (B-1) 100 MG TABLET PO SCH (11:45)
--- NOTE | 2018-11-17 12:10 | Gastroenterology Consult Note ---
<Willie Tejeda Rancho - Last Filed: 11/17/18 12:08> Date of Encounter: 11/17/18 Time of Encounter: 10:30 - Assessment and plan (1) Abnormal liver function test Current Visit: Yes Status: Acute Assessment and plan: Hepatic panel improving. On admission total bili 5.5, AST 100, ALT 70, alkaline phosphatase 257. Today total bili 2.9, AST 63, ALT 48, alkaline phosphatase 192. RUQ US showed hepatic steatosis, irregular appearance of the hepatic capsule suggestive fibrosis or early cirrhosis. Complete liver workup (AFP, alpha-1 antitrypsin, VADIM, ANCA, ceruloplasmin, F actin, ferritin, AMA, fibrosis score). (2) Hepatic steatosis Current Visit: Yes Status: Acute Assessment and plan: Complete liver workup. Gradual weight loss of 7-10%. Moderate caloric restriction of 500-700 Kcal/day Eliminate or significantly reduce saturated fatty acids and high fructose corn syrup from diet Consider omega-3 fatty acids supplements Consider regular coffee consumption, 2-3 cups/day if can be tolerated (3) Chronic alcohol dependence, continuous Current Visit: Yes Status: Chronic Assessment and plan: Encouraged patient to abstain from all forms of alcohol. - Time Spent With Patient Total time spent is greater than 50% in coordination of care (as documented) at patient's floor/unit and/or counseling patient: GI History of Present Illness - Data of Consult Patient: new to practice Consult date: 11/17/18 Requesting Physician: Alyse Melton - Consult Narrative Reason for consult: elevated bili, cirrhosis History of present illness: Ms. Salazar is a 73 year old female with PMHx of HLD, HTN, alcohol abuse (12 pack beer daily) anxiety was admitted with dehydration, hyponatremia, malnutrition, and generalized weakness. She reports not eating or drinking at home due to not having anything to eat or drink. She has long history of alcohol abuse, drinking 12 pack beer daily for over 10 years. She states she has not had any alcohol in 6 weeks. On admission total bili 5.5, AST 100, ALT 70, alkaline phosphatase 257. Right upper quadrant ultrasound showed hepatic steatosis, irregular appearance of the hepatic capsule suggestive fibrosis or early cirrhosis. Today total bili 2.9, AST 63, ALT 48, alkaline phosphatase 192. Procedures: Colonoscopy 07/15/2010 Dr. Jackson: Small hyperplastic polyps in the rectum and sigmoid colon, sessile adenoma in the splenic flexure, internal hemo rrhoids, repeat 3-5 years. NSAIDs: None Anticoagulation: None Past Med Surg Social Fam HX - Past Medical History Medical history: hyperlipidemia, hypertension, thyroid disease Psychiatric history: anxiety, depression - Past Surgical History Surgical History: cholecystectomy - Social History Smoking Status: Current every day smoker Packs per day: 1 Smokeless Tobacco Status: No Alcohol use: heavy Drug use: none - Family History Mother Living Status: Father Living Status: - Gastrointestinal Gastrointestinal: Present: as per HPI - Constitutional Constitutional: as per HPI - EENT Eyes: as per HPI Ears: Present: as per HPI Nose, mouth and throat: Present: as per HPI - Cardiovascular Cardiovascular ROS: Present: as per HPI - Respiratory Respiratory IM: Present: as per HPI - Genitourinary Genitourinary: Absent: change in color, Urinary frequency - Neurological ROS Neurological GI: Present: as per HPI - Hematologic/Lymphatic Hematologic/Lymphatic pediatric: Present: as per HPI - Musculoskeletal Musculoskeletal ROS GI: Present: as per HPI - Integumentary Integumentary GI: Present: as per HPI - Psychiatric ROS Psychiatric GI: Present: as per HPI - Endocrine Endocrine IM: Present: as per HPI - Constitutional Vitals: Temp Pulse Resp BP Pulse Ox 97.9 F 88 14 130/91 95 11/17/18 06:00 11/17/18 06:00 11/17/18 06:00 11/17/18 06:00 11/17/18 06:00 General appearance: Present: cooperative, A&O X 3, no acute distress, answers questions appropriately - Head Head exam: Present: atraumatic, normocephalic - Eye Eye exam: Present: normal appearance, sclera anicteric - ENT ENT exam: Present: mucous membranes moist - Neck Neck exam general surgery: Present: normal inspection, trachea midline - Respiratory Respiratory exam: Present: CTAB. Absent: rales, rhonchi - Cardiovascular Cardiovascular exam: Present: RRR, +S1, +S2 - GI/Abdominal GI/Abdominal exam: Present: soft, no peritoneal signs. Absent: distended, firm, guarding, tenderness - Rectal Rectal exam: Present: deferred - Extremities Exam Extremities exam: Present: warm - Neurological Exam Neurological exam: Present: no focal deficits - Psychiatric Psychiatric exam: Present: normal affect, normal mood - Skin Skin exam: Present: dry, intact, normal color, warm Results - Labs CBC & Chem 7: 11/17/18 05:51 11/17/18 05:51 Labs: Last Result 11/17/18 05:51 Calcium 7.8 L Entire Visit 11/17/18 11/17/18 05:51 05:51 Hgb 11.5 Hct 33.5 L Total Bilirubin 2.9 H AST 63 H ALT 48 - ABG ABG results: PT/INR, D-dimer PT 12.9 Seconds (9.4-12.1) H 11/16/18 09:27 Consult Discharge Plan - Plan Referrals: Maryjane Do, [Primary Care Provider] - <Janet Villanueva - Last Filed: 11/17/18 17:58> Date of Encounter: 11/17/18 Time of Encounter: 15:00 - Time Spent With Patient Total time spent is greater than 50% in coordination of care (as documented) at patient's floor/unit and/or counseling patient: GI History of Present Illness - Data of Consult Requesting Physician: Alyse Melton - Consult Narrative History of present illness: Ms. Salazar is a 73 year old female - Constitutional Vitals: Temp Pulse Resp BP Pulse Ox 98.2 F 102 14 108/74 92 11/17/18 15:25 11/17/18 15:25 11/17/18 15:25 11/17/18 15:25 11/17/18 15:25 Results - Labs CBC & Chem 7: 11/17/18 05:51 11/17/18 05:51 Labs: Last Result 11/17/18 11/17/18 05:51 13:41 Calcium 7.8 L Ferritin 270 H Entire Visit 11/17/18 11/17/18 11/17/18 05:51 05:51 13:41 Hgb 11.5 Hct 33.5 L Ferritin 270 H Total Bilirubin 2.9 H AST 63 H ALT 48 - ABG ABG results: PT/INR, D-dimer PT 12.9 Seconds (9.4-12.1) H 11/16/18 09:27 - Impressions Impressions Liver Ultrasound 11/16/18 09:00 IMPRESSION: 1. Hepatic steatosis is present. 2. Mildly irregular appearance of the hepatic capsule, suggestive of hepatic fibrosis or early cirrhosis. 3. Status post cholecystectomy. D/ / 11/16/2018 09:28:56 Zackary Hatfield MD / tristan Interpreting Provider: Zackary Hatfield MD - Attending Attestation I have personally performed a face to face evaluation on this patient. I have reviewed and agree with the care plan. History and Exam by me shows: Patient seen complaining of feeling fatigued and tired with leg weakness. On examination: Alert and awake not in distress. Abdomen is benign. assessment: Patient with alcoholism now with cirrhosis. Did had elevated LFTs but no CBD dilation. Recommendation: Workup for cirrhosis also we will check her B12. Patient will need Thaimine and multivitamin.
[2018-11-17] MEDS ORDERED: Ondansetron 4 MG/2 ML VIAL IVP ONE (21:00)
[2018-11-17] MEDS ORDERED: Ondansetron 4 MG/2 ML VIAL ONE (21:03)
[2018-11-17] MEDS: traZODone 50 MG TABLET PO SCH (23:24)
[2018-11-18] MEDS: *HR* Heparin 5,000 UNIT/ML VIAL SQ SCH ×2 (06:32→16:15)
[2018-11-18] MEDS: Levothyroxine 25 MCG TABLET PO SCH (06:32)
--- NOTE | 2018-11-18 07:43 | Internal Med Progress Note ---
Hospitalist Progress Note - Encounter Date of Encounter: 11/18/18 - Exam Vitals: Temp Pulse Resp BP Pulse Ox 97.7 F 105 17 122/99 96 11/18/18 07:21 11/18/18 07:21 11/18/18 04:55 11/18/18 07:21 11/18/18 04:55 - Assessment and Plan (1) Weakness Current Visit: Yes Status: Acute (2) Hyponatremia Current Visit: Yes Status: Acute (3) Abnormal liver function test Current Visit: Yes Status: Acute (4) Hepatic steatosis Current Visit: Yes Status: Acute (5) Chronic alcohol dependence, continuous Current Visit: Yes Status: Chronic (6) Hypokalemia Current Visit: Yes Status: Acute (7) Hypomagnesemia Current Visit: Yes Status: Acute (8) Hypoalbuminemia Current Visit: Yes Status: Acute (9) Elevated TSH Current Visit: Yes Status: Acute (10) Frail elderly Current Visit: Yes Status: Acute - Time Spent with Patient Total time spent is greater than 50% in coordination of care (as documented) at patient's floor/unit and/or counseling patient: Internal Medicine: Result - Labs CBC & Chem 7: 11/17/18 05:51 11/17/18 05:51 - ABG Interpretation ABG results: PT/INR, D-dimer PT 12.9 Seconds (9.4-12.1) H 11/16/18 09:27 - Impressions Impressions Liver Ultrasound 11/16/18 09:00 IMPRESSION: 1. Hepatic steatosis is present. 2. Mildly irregular appearance of the hepatic capsule, suggestive of hepatic fibrosis or early cirrhosis. 3. Status post cholecystectomy. D/ / 11/16/2018 09:28:56 Zackary Hatfield MD / tristan Interpreting Provider: Zackary Hatfield MD Consult Discharge Plan - Plan Referrals: Maryjane Do DO [Primary Care Provider] -
[2018-11-18 07:50] LABS: Basophils # 0.2 K/mcL (0.0-0.2); Basophils % 2.1 %; Eosinophils # 0.1 K/mcL (0.0-0.6); Hematocrit 33.5 % (35.3-44.9); Hemoglobin 11.3 g/dL (11.5-15.4); Immature Granulocytes % 2.3 % (0-4); Lymphocytes # 2.6 K/mcL (0.6-4.6); Mean Corpuscular HGB Conc 33.7 g/dL (31.6-35.5); Mean Corpuscular Hemoglobin 32.2 pg (28.0-33.3); Mean Corpuscular Volume 95.4 fL (83.0-100.0); Mean Platelet Volume 9.2 fL (9.4-12.4); Monocytes # 0.8 K/mcL (0.0-1.3); Monocytes % 10.4 %; Neutrophils # 3.6 K/mcL (1.6-8.9); Nucleated Red Blood Cells 1.2 /100 WBC (0); Platelet Count 182 K/mcL (140-400); Red Blood Count 3.51 M/mcL (3.82-4.97); Red Cell Distribution Width 18.2 % (11.5-14.5); Segmented Neutrophils % 49.2 %; White Blood Count 7.3 K/mcL (4.3-11.1)
[2018-11-18 08:01] LABS: Alanine Aminotransferase 45 Units/L (7-52); Albumin 2.8 g/dL (3.5-5.7); Albumin/Globulin Ratio 1.2 (1.1-2.2); Alkaline Phosphatase 162 Units/L (34-104); Aspartate Amino Transferase 65 Units/L (13-39); BUN/Creatinine Ratio 13 (6-26); Bilirubin,Total 2.6 mg/dL (0.3-1.0); Blood Urea Nitrogen 6 mg/dL (8-23); Calcium 8.4 mg/dL (8.6-10.3); Carbon Dioxide 28 mEq/L (23-29); Chloride 99 mEq/L (98-107); Globulin 2.4 g/dL (2.4-3.5); Glucose 91 mg/dL (70-105); Magnesium 1.3 mg/dL (1.6-2.6); Osmolality,Calculated 275 (280-300); Potassium 3.4 mEq/L (3.5-5.1); Sodium 134 mEq/L (136-145); Total Protein 5.2 g/dL (6.4-8.9); eGFR For African Americans > 60 (> 60); eGFR For Non-African Americans > 60 (> 60)
[2018-11-18 08:25] LABS: Folate 9.8 ng/mL (3.0-16.0)
[2018-11-18 08:27] LABS: Vitamin B12 > 1500 pg/mL (250-1100)
[2018-11-18] MEDS: Magnesium Oxide 400 MG TABLET PO SCH (08:27)
[2018-11-18] MEDS: Venlafaxine XR (24 HR) 150 MG CAP.ER.24H PO SCH (08:27)
[2018-11-18] MEDS: Folic Acid 1 MG TABLET PO SCH (08:27)
[2018-11-18] MEDS: Thiamine (B-1) 100 MG TABLET PO SCH (08:28)
[2018-11-18] MEDS: amLODIPine 5 MG TABLET PO SCH (08:28)
[2018-11-18] MEDS: Multivit/Ca/Min/Fe/FA 1 TAB TABLET PO SCH (08:28)
[2018-11-18] MEDS: Venlafaxine XR (24 HR) 75 MG CAP.ER.24H PO SCH (08:28)
[2018-11-18] MEDS ORDERED: Potassium Effervescent 25 MEQ TABLET.EFF PO ONE (11:04)
--- NOTE | 2018-11-18 13:17 | Discharge Summary ---
<DaltonvetomeñoEan forte - Last Filed: 11/18/18 14:24> - NOTES TO OUTPATIENT PROVIDER Notes to Outpatient Provider: Patient was noted to have an elevated TSH. Was started on her home dose of Synthroid however will need to be reevaluated for dosage. Also noted for hypomagnesemia for which patient received IV magnesium and was put on oral supplements. Will need to be monitored in outpatient. Sodium levels have been stable and and potassium was borderline normal (however replenished on discharge) but might need a repeat BMP in 3-4 days. Orders not resulted at time of discharge: Pending orders 11/15/18 17:21 Culture,Blood [BC] Stat 11/16/18 07:00 Culture,Urine [RM] Stat 11/17/18 13:41 AFP Tumor Marker Non- Routine VADIM IgG PRASANNA rflx IFA Routine [id number] Routine Ceruloplasmin Routine F-Actin IgG Reflex Sm Muscle Routine Liver Fibrosis for NAFLD Routine MPO/PR3 (ANCA) Antibodies Routine Mitochondrial M2 Antibody, IgG Routine 11/19/18 04:00 Complete Blood Count [HEME] AM 0400 Date of Encounter: 11/18/18 Time of Encounter: 09:30 - Discharge Diagnosis (1) Weakness Priority: Primary Status: Acute (2) Hyponatremia Priority: Primary Status: Acute (3) Abnormal liver function test Priority: Secondary Status: Acute (4) Hepatic steatosis Priority: Secondary Status: Acute (5) Chronic alcohol dependence, continuous Priority: Primary Status: Chronic (6) Hypokalemia Priority: Primary Status: Acute (7) Hypomagnesemia Priority: Primary Status: Acute (8) Hypoalbuminemia Priority: Secondary Status: Acute (9) Elevated TSH Priority: Secondary Status: Acute (10) Frail elderly Priority: Secondary Status: Acute Hospital course: Ms. Salazar is a 73 year old female with a past medical history of hypertension, hypothyroidism, and alcohol dependence that presented for weakness and oral intake on 11/15/18. Patient says that her symptoms have been worsening over the past several weeks. She said that she had not been eating much food at the time due to not having any access to food due to financial problems. Patient admitted to heavy alcohol use of up to 12 packs of beer daily. She noted that her last alcoholic beverage was 6 weeks ago. She was noted to be very weak with ambulation and short of breath on arrival. In the ER patient was tachycardic but with a stable blood pressure and afebrile. BMP was significant for hyponatremia at 125 and hypokalemia at 2.5. Liver function tests were abnormal including a bilirubin of 5.5 and mildy elevated AST/ALT and an elevated alkaline phosphatase of 257. Chest x-ray was normal. EKG showed no acute ischemic changes. Troponin levels were were negative. Hepatitis panel was nonreactive. Her right upper quadrant ultrasound showed liver with fibrosis/early cirrhosis along with hepatic steatosis. Patient was admitted for hyponatremia, alcohol withdrawal, and transaminitis. She was placed on IV fluids and during hospital course her sodium level gradually improved to 134. She was also placed on [facility] protocol for her alcohol dependence. Patient's transaminases and alkaline phosphatase have been steadily declining. Her vitals have been stable. She has been demonstrating adequate by mouth intake. When seen today she did admit that she had a small bout of emesis last night however that was not postprandial area she denied any hematemesis. Currently denies any nausea or vomiting. Denies any abdominal pain, chest pain, shortness of breath, or fever. Patient was noted to have low magnesium and was placed on IV and oral magnesium. Patient to continue daily magnesium oral supplements on outpatient basis. Was noted to be slightly hypokalemic today at 3.4. Was given potassium replenishme nt. Patient is awaiting approval for placement at [facility] for rehabilitation. Afterwards she will be placed into an alcohol detox program. Patient will need to follow-up with her PCP in the next 3-4 days. - Time Spent with Patient Total time spent providing and/or coordinating discharge services: Time spent: Greater than 30 minutes - Discharge Medications Prescriptions: New Magnesium Oxide [Mag-Ox] 400 mg PO DAILY 30 Days #30 tablet Continued Omeprazole [PriLOSEC] 20 mg PO DAILY ALPRAZolam [Xanax 0.5 MG Tablet] 0.5 mg PO HS PRN PRN Reason: Anxiety traZODone [TraZODone] 100 mg PO HS Amlodipine Besylate 10 mg PO DAILY Levothyroxine Sodium 50 mcg PO QAM Potassium Chloride [K-Tab ER] 20 meq PO DAILY Venlafaxine HCl [Venlafaxine HCl ER] 75 mg PO DAILY Venlafaxine HCl [Venlafaxine HCl ER] 150 mg PO DAILY Home Medications: ALPRAZolam [Xanax 0.5 MG Tablet] 0.5 mg PO HS PRN 06/12/15 [History] Omeprazole [PriLOSEC] 20 mg PO DAILY 06/12/15 [History] traZODone [TraZODone] 100 mg PO HS 06/12/15 [History] Amlodipine Besylate 10 mg PO DAILY 11/17/18 [History] Levothyroxine Sodium 50 mcg PO QAM 11/17/18 [History] Potassium Chloride [K-Tab ER] 20 meq PO DAILY 11/17/18 [History] Venlafaxine HCl [Venlafaxine HCl ER] 75 mg PO DAILY 11/17/18 [History] Venlafaxine HCl [Venlafaxine HCl ER] 150 mg PO DAILY 11/17/18 [History] Magnesium Oxide [Mag-Ox] 400 mg PO DAILY 30 Days #30 tablet 11/18/18 [Rx] Allergies/Adverse Reactions: Allergy/AdvReac Type Severity Reaction Status Date / Time promethazine [From Phenergan] AdvReac See Verified 11/17/18 12:37 Comments rofecoxib [From Vioxx] AdvReac See Verified 11/17/18 12:37 Comments Date of admission: 11/16/18 14:27 Primary care physician: Cheryl Whitfield Consults: 11/16/18 00:52 Consult to Nutrition [CONS] Routine Comment: Consulting Provider: NUTRITION Reason for Dietary Consult: PO Supplementation Consult to Occupational Therapy [CONS] Routine Comment: Evaluate, develop and implement POC Reason for Consult: Generalized weakness, history of chronic alcoholism. Does patient have active BEDREST order?: No Is patient medically & hemodynamically stable?: Yes Patient assessed for mobility or mobilized this visit?: No Consult to Physical Therapy [CONS] Routine Comment: Evaluate, develop and implement POC Reason for Consult: Generalized weakness, history of chronic alcoholism. Does patient have active BEDREST order?: No Is patient medically & hemodynamically stable?: Yes Patient assessed for mobility or mobilized this visit?: No Consult to Nail Artist [CONS] Routine Reason for SW Consult: Patient has difficulty obtaining food and medications at home. History of chronic alcoholism. 11/16/18 14:25 Consult to Gastroenterology [CONS] Routine Consulting Provider: Gastroenterology Lora Reason for Consult: elevated total bilirubin, transaminitis, and liver US with early fibrosis/cirrhosis in chronic etoh user presenting for weakness. Hepatitis panel negative. Call Completed: Yes Discharging clinician: Ean Brown Anticipated date of discharge: 11/18/18 - Constitutional Vitals: Temp Pulse Resp BP Pulse Ox 97.7 F 85 17 116/77 83 11/18/18 07:21 11/18/18 11:28 11/18/18 04:55 11/18/18 11:28 11/18/18 11:28 General appearance: Present: cooperative, A&O X 3, pleasant, no acute distress, answers questions appropriately Exam: GENERAL APPEARANCE: Obsese, alert and cooperative, and appears to be in no acute distress. HEAD: normocephalic. EYES: PERRL, EOMI. Fundi normal, vision is grossly intact. EARS: External auditory canals and tympanic membranes clear, hearing grossly intact. NOSE: No nasal discharge. THROAT: Oral cavity and pharynx normal. No inflammation, swelling, exudate, or lesions. NECK: Neck supple, non-tender without lymphadenopathy, masses or thyromegaly. CARDIAC: Normal S1 and S2. No S3, S4 or murmurs. Rhythm is regular. There is no peripheral edema, cyanosis or pallor. Extremities are warm and well perfused. Capillary refill is less than 2 seconds. No carotid bruits. LUNGS: Clear to auscultation and percussion without rales, rhonchi, wheezing or diminished breath sounds. ABDOMEN: Positive bowel sounds. Soft, nondistended, nontender. No guarding or rebound. No masses. EXTREMITIES: No significant deformity or joint abnormality. No edema. Peripheral pulses intact. No varicosities. LOWER EXTREMITY: Examination of both feet reveals all toes to be normal in size and symmetry, normal range of motion, normal sensation with distal capillary filling of less than 2 seconds without tenderness, swelling, discoloration, nodules, weakness or deformity. SKIN: Skin normal color, texture and turgor with no lesions or eruptions. PSYCHIATRIC: The mental examination revealed the patient was oriented to person, place, and time. Patient displayed a flat affect. Poor eye contact. Very terse with her answers to questions. - Patient Status Disposition: Transfer Inpatient Rehab Fac Condition: Good Overall status at discharge: patient is progressing back to baseline - Discharge Instructions Instructions: Alcohol Intoxication (DC), Cigarette Smoking and Your Health, Supply Chain Development Manager (GEN) Follow Up With: Maryjane Do DO [Primary Care Provider] - 11/23/18 9:30 am Janet Villanueva MD [Partnered Physician] - - Diet and Activity Activity: increase activity as tolerated Diet: low fat, low cholesterol <Alyse Melton - Last Filed: 11/18/18 16:10> Orders not resulted at time of discharge: Pending orders 11/15/18 17:21 Culture,Blood [BC] Stat 11/16/18 07:00 Culture,Urine [RM] Stat 11/17/18 13:41 AFP Tumor Marker Non- Routine VADIM IgG PRASANNA rflx IFA Routine Tqldg-2-Jdrktuirpef Routine Ceruloplasmin Routine F-Actin IgG Reflex Sm Muscle Routine Liver Fibrosis for NAFLD Routine MPO/PR3 (ANCA) Antibodies Routine Mitochondrial M2 Antibody, IgG Routine 11/19/18 04:00 Complete Blood Count [HEME] AM 0400 Date of Encounter: 11/18/18 - Discharge Diagnosis (1) Hyponatremia Status: Acute (2) Hypokalemia Status: Acute (3) Chronic alcohol dependence, continuous Status: Chronic (4) DVT prophylaxis Status: Acute (5) Hypoalbuminemia Status: Acute (6) Frail elderly Status: Acute (7) Weakness Status: Acute (8) Abnormal liver function test Status: Acute (9) Nicotine use disorder Status: Acute Hospital course: Ms. Salazar is a 73 year old female Discharge discussed with: patient, family, social work - Time Spent with Patient Total time spent providing and/or coordinating discharge services: Time spent: Greater than 30 minutes (35 min) Date of admission: 11/16/18 14:27 Primary care physician: Cheryl Whitfield Consults: 11/16/18 00:52 Consult to Nutrition [CONS] Routine Comment: Consulting Provider: NUTRITION Reason for Dietary Consult: PO Supplementation Consult to Occupational Therapy [CONS] Routine Comment: Evaluate, develop and implement POC Reason for Consult: Generalized weakness, history of chronic alcoholism. Does patient have active BEDREST order?: No Is patient medically & hemodynamically stable?: Yes Patient assessed for mobility or mobilized this visit?: No Consult to Physical Therapy [CONS] Routine Comment: Evaluate, develop and implement POC Reason for Consult: Generalized weakness, history of chronic alcoholism. Does patient have active BEDREST order?: No Is patient medically & hemodynamically stable?: Yes Patient assessed for mobility or mobilized this visit?: No Consult to Nail Artist [CONS] Routine Reason for SW Consult: Patient has difficulty obtaining food and medications at home. History of chronic alcoholism. 11/16/18 14:25 Consult to Gastroenterology [CONS] Routine Consulting Provider: Gastroenterology Lora Reason for Consult: elevated total bilirubin, transaminitis, and liver US with early fibrosis/cirrhosis in chronic etoh user presenting for weakness. Hepatitis panel negative. Call Completed: Yes - Constitutional Vitals: Temp Pulse Resp BP Pulse Ox 97.7 F 86 17 105/69 93 11/18/18 07:21 11/18/18 15:30 11/18/18 04:55 11/18/18 15:30 11/18/18 15:30 - Attending Attestation I examined this patient and my medical decision-making was reviewed with the Resident Physician Dr Brown. I agree with the documented findings, disposition and treatment plan as described except to the extent set forth below. Ms Salazar is admitted with dehydration, hyponatremia, malnutrition and generalized weakness. She is medically stable for dc to snf awake, son at bedside. eating and drinking without n/v/abd pain today. encouraged cont good oral intake upon dc. discussed dc plan and agreeable to rehab and will fu with gi outpt gen- alert, awake,appears stated age eyes- no scleral icterus cv- reg rate and rhythm, no le edema lungs- ctabl, normal resp effort on room air abd- soft, non tender, non distended, no HSM neuro- AAOx3, strength 5/5 throughout all ext Hyponatremia, Na 134 on dc-stable with oral intake Early Liver Cirrhosis Abnormal LFTs - appreciate GI recs, fu pending labs outpt with GI in follow up Etoh Abuse not in withdrawal- no w.d while here, after inpt physical rehab she will go to inpt detox program Hypothyroidism, elevated TSH due to non compliance with medication- resumed home dosing, fu with PCP outpt for recheck of lab Hypomagnesemia- IV repletion prior to discharge further diagnoses and plan as noted by resident time spent on dc 35 min
--- NOTE | 2018-11-18 14:58 | Physician Discharge Referral ---
<Ean Brown - Last Filed: 11/18/18 14:56> ExtendedCare Referral Info Transfer To: [facility] Provider in Charge after Transfer: PCP Institutional Level of Care: Skilled - Diagnosis (1) Weakness Priority: Secondary Status: Acute (2) Hyponatremia Priority: Primary Status: Acute (3) Abnormal liver function test Priority: Secondary Status: Acute (4) Hepatic steatosis Priority: Secondary Status: Acute (5) Chronic alcohol dependence, continuous Priority: Primary Status: Chronic (6) Hypokalemia Priority: Primary Status: Acute (7) Hypomagnesemia Priority: Primary Status: Acute (8) Hypoalbuminemia Priority: Secondary Status: Acute (9) Elevated TSH Priority: Primary Status: Acute (10) Frail elderly Priority: Secondary Status: Acute - Transfer Medications Prescriptions: Magnesium Oxide [Mag-Ox] 400 mg PO DAILY 30 Days #30 tablet Home Medications: ALPRAZolam [Xanax 0.5 MG Tablet] 0.5 mg PO HS PRN 06/12/15 [History] Omeprazole [PriLOSEC] 20 mg PO DAILY 06/12/15 [History] traZODone [TraZODone] 100 mg PO HS 06/12/15 [History] Amlodipine Besylate 10 mg PO DAILY 11/17/18 [History] Levothyroxine Sodium 50 mcg PO QAM 11/17/18 [History] Potassium Chloride [K-Tab ER] 20 meq PO DAILY 11/17/18 [History] Venlafaxine HCl [Venlafaxine HCl ER] 75 mg PO DAILY 11/17/18 [History] Venlafaxine HCl [Venlafaxine HCl ER] 150 mg PO DAILY 11/17/18 [History] Magnesium Oxide [Mag-Ox] 400 mg PO DAILY 30 Days #30 tablet 11/18/18 [Rx] Allergies/Adverse Reactions: Allergy/AdvReac Type Severity Reaction Status Date / Time promethazine [From Phenergan] AdvReac See Verified 11/17/18 12:37 Comments rofecoxib [From Vioxx] AdvReac See Verified 11/17/18 12:37 Comments - Respiratory Orders Smoking Cessation: Smoking cessation has been advised. For more information, call the [place] Tobacco Quit Line at 6-464-JPLE-NOW. - Ancillary Orders May use pressure relief devices daily prn, May consult with Dentist, Welding Machine Operator Friction, Oversize Load Pilot Escort PRN - Rehabiliation Orders Rehab Orders: Evaluation for Physical Therapy, Evaluation for Occupational Therapy - Treatments Skin tear care topically daily PRN per policy, May check for fecal impaction rectally daily PRN, Fleet enema rectally every other day PRN cleansing purposes - Diet Orders No Added Salt (JANY), Cardiac CERTIFICATION: I certify that the transfer of the above named patient to an Extended Care Facility is necessary for the continuing treatment of the diagnosis listed. The above information is true and accurate reflection of patient's current condition. Confidential - Redisclosure prohibited without a patient's written consent. <Alyse Melton - Last Filed: 11/18/18 16:11> - Diagnosis (1) Hyponatremia Status: Acute (2) Hypokalemia Status: Acute (3) Chronic alcohol dependence, continuous Status: Chronic (4) DVT prophylaxis Status: Acute (5) Hypoalbuminemia Status: Acute (6) Frail elderly Status: Acute (7) Weakness Status: Acute (8) Abnormal liver function test Status: Acute (9) Nicotine use disorder Status: Acute - Respiratory Orders None Smoking Cessation: Smoking cessation has been advised. For more information, call the [employer] Tobacco Quit Line at 4-658-MPCT-NOW. - Lab Orders Lab Orders: Other (include drug levels w/frequency) (BMP and Mag check in 3-5 days to assess Na, K and Mag) - Advance Directives Code Status: Full Code - Mobility Orders Ambulate - Rehabiliation Orders Rehab Potential: Good Rehab Orders: Sternal Precautions, ROM Exercises - Diet Orders Regular, Cardiac CERTIFICATION: I certify that the transfer of the above named patient to an Extended Care Facility is necessary for the continuing treatment of the diagnosis listed. The above information is true and accurate reflection of patient's current condition. Confidential - Redisclosure prohibited without a patient's written consent.
[2018-11-19] MEDS: traZODone 50 MG TABLET PO SCH ×2 (00:28→23:29)
[2018-11-19] MEDS: Nicotine 21 MG PATCH.TD24 TD SCH (00:28)
[2018-11-19 02:33] LABS: Basophils # 0.1 K/mcL (0.0-0.2); Basophils % 1.5 %; Eosinophils # 0.1 K/mcL (0.0-0.6); Eosinophils % 0.9 %; Hematocrit 32.1 % (35.3-44.9); Hemoglobin 10.8 g/dL (11.5-15.4); Immature Granulocytes % 2.6 % (0-4); Lymphocytes # 2.2 K/mcL (0.6-4.6); Lymphocytes % 32.7 %; Mean Corpuscular HGB Conc 33.6 g/dL (31.6-35.5); Mean Corpuscular Hemoglobin 32.5 pg (28.0-33.3); Mean Corpuscular Volume 96.7 fL (83.0-100.0); Mean Platelet Volume 9.1 fL (9.4-12.4); Monocytes # 0.8 K/mcL (0.0-1.3); Monocytes % 12.3 %; Neutrophils # 3.3 K/mcL (1.6-8.9); Nucleated Red Blood Cells 1.2 /100 WBC (0); Platelet Count 185 K/mcL (140-400); Red Blood Count 3.32 M/mcL (3.82-4.97); Red Cell Distribution Width 18.4 % (11.5-14.5); White Blood Count 6.6 K/mcL (4.3-11.1)
[2018-11-19] MEDS: Levothyroxine 25 MCG TABLET PO SCH (06:29)
[2018-11-19] MEDS: *HR* Heparin 5,000 UNIT/ML VIAL SQ SCH ×2 (06:29→18:54)
--- NOTE | 2018-11-19 08:08 | Internal Med Progress Note ---
<Alyse Melton - Last Filed: 11/19/18 14:16> Hospitalist Progress Note - Encounter Date of Encounter: 11/19/18 - Exam Vitals: Temp Pulse Resp BP Pulse Ox 98.3 F 83 16 133/81 93 11/19/18 11:36 11/19/18 11:36 11/19/18 11:36 11/19/18 11:36 11/19/18 11:36 - Assessment and Plan (1) Hyponatremia Current Visit: Yes Status: Acute (2) Hypokalemia Current Visit: Yes Status: Acute (3) Chronic alcohol dependence, continuous Current Visit: Yes Status: Chronic (4) DVT prophylaxis Current Visit: No Status: Acute (5) Hypoalbuminemia Current Visit: Yes Status: Acute (6) Frail elderly Current Visit: Yes Status: Acute (7) Weakness Current Visit: Yes Status: Acute (8) Abnormal liver function test Current Visit: Yes Status: Acute (9) Nicotine use disorder Current Visit: Yes Status: Acute - Time Spent with Patient Total time spent is greater than 50% in coordination of care (as documented) at patient's floor/unit and/or counseling patient: Internal Medicine: Result - Labs CBC & Chem 7: 11/19/18 02:05 11/18/18 07:00 Labs: Short CBC 11/19/18 Range/Units 02:05 WBC 6.6 (4.3-11.1) K/mcL Hgb 10.8 L (11.5-15.4) g/dL Hct 32.1 L (35.3-44.9) % Plt Count 185 (140-400) K/mcL Neutrophils # 3.3 (1.6-8.9) K/mcL - ABG Interpretation ABG results: PT/INR, D-dimer PT 12.9 Seconds (9.4-12.1) H 11/16/18 09:27 Consult Discharge Plan - Plan Instructions: Alcohol Intoxication (DC), Cigarette Smoking and Your Health, Child Care Associate Teacher (GEN) Referrals: Maryjane Do DO [Primary Care Provider] - 11/23/18 9:30 am Janet Villanueva MD [Partnered Physician] - Prescriptions: Magnesium Oxide [Mag-Ox] 400 mg PO DAILY 30 Days #30 tablet - Attending Attestation I examined this patient and my medical decision-making was reviewed with the Resident Physician Dr Holm. I agree with the documented findings, disposition and treatment plan as described except to the extent set forth below. Ms Salazar is admitted with dehydration, hyponatremia, malnutrition and generalized weakness. She is medically stable for dc to snf awake, eating breakfast. no complaints. energy improving. awaiting placement gen- alert, awake,appears stated age cv- reg rate and rhythm, normal S1S2 lungs- ctabl, normal resp effort on room air neuro- AAOx3 Hyponatremia, improved-stable with oral intake, will repeat level in am since she will still be here Early Liver Cirrhosis Abnormal LFTs - appreciate GI recs, fu pending labs outpt with GI in follow up Etoh Abuse not in withdrawal- no w/d while here, after inpt physical rehab she will go to inpt detox program Hypothyroidism, elevated TSH due to non compliance with medication- resumed home dosing, fu with PCP outpt for recheck of lab Hypomagnesemia- s/p repletion, will repeat level in am since she will still be here to assess for further repletion need further diagnoses and plan as noted by resident <Beverley Holm - Last Filed: 11/19/18 15:20> Hospitalist Progress Note - Encounter Date of Encounter: 11/19/18 Time of Encounter: 11:30 - Subjective Interval History: Patient seen and examined at bedside resting comfortably. She has no complaints. She denies fever, chills, chest pain, shortness of breath, dysuria, diarrhea. - Exam Vitals: Temp Pulse Resp BP Pulse Ox 98.2 F 76 16 146/94 95 11/19/18 07:36 11/19/18 07:36 11/19/18 07:36 11/19/18 07:36 11/19/18 07:36 Exam: Gen.: Vitals noted. No acute distress. AAOx3 HEENT: oropharynx clear, Normocephalic, atraumatic Cardiac: RRR, no murmur, +S1/S2 Pulmonary: CTA bilaterally, no wheezes, rales or rhonchi, equal chest expansion Abdomen: soft, nontender, Bowel sounds noted, no guarding MSK: no joint swelling noted Extremities: no BLE edema, nontender calf, no cyanosis or clubbing Neuro: A&Ox3, moves all extremities, no focal deficits Psych: Appropriate mood and behavior - Assessment and Plan (1) Weakness Current Visit: Yes Status: Acute Assessment and Plan: Most likely due to oral intake. Patient has long-standing history of a lcoholism. Patient also noted to be hypothyroid and is reportedly noncompliant with taking her levothyroxine. -TSH elevated -PT/OT consulted and recommends SNF -nutrition consulted -continue with ensure with meal -continue levothyroxine (2) Hyponatremia Current Visit: Yes Status: Acute Assessment and Plan: Hyponatremia that is likely secondary to her poor oral intake. Sodium at admission 125. No focal neurologic deficits or seizures. Sodium was slowly corrected during admission with IV fluids. -Sodium 134 -Improved and at baseline -continue oral diet (3) Hypokalemia Current Visit: Yes Status: Acute Assessment and Plan: Hypokalemia at admission potassium 2.5 -magnesium 1.6 -potassium 3.4 -patient not complaining of palpitations -continue to monitor potassium and magnesium and supplement as needed (4) Chronic alcohol dependence, continuous Current Visit: Yes Status: Chronic Assessment and Plan: Reports last alcohol use 6 weeks ago, will start CIWA protocol for patient's safety and monitor for signs/symptoms of withdrawal. Plan: - C/W daily multivitamin, thiamine, folate supplements. - C/W CIWA protocol. (5) Hypoalbuminemia Current Visit: Yes Status: Acute Assessment and Plan: This is most likely due to poor all intake due to alcoholism. Nutrition consulted. Continue with ensure drinks (6) Abnormal liver function test Current Visit: Yes Status: Acute Assessment and Plan: This is likely secondary to her alcoholism causing liver disease. -INR and platelets WNL -AST 65, ALT 45 -total bilirubin 2.6 -RUQ US shows irregular appearing liver capsule suggesting hepatic fibrosis or early cirrhosis; s/p cholecystectomy -Hepatitis panel non-reactive -APAP level negative plan -GI consulted and recommended complete liver workup (AFP, alpha-1 antitrypsin, VADIM, ANCA, ceruloplasmin, F actin, ferritin, AMA, fibrosis score). They will now follow up with her outpatient. (7) Frail elderly Current Visit: Yes Status: Acute Assessment and Plan: PT/OT recommend it SNF on discharge (8) Hepatic steatosis Current Visit: Yes Status: Acute Assessment and Plan: Likely secondary to obesity and chronic alcoholism -liver ultrasound showing hepatic steatosis, mildly irregular appearance of hepatic capsule suggestive of hepatic fibrosis or early cirrhosis. -GI recommends moderate caloric restriction of 500-700 Kcal/day and to eliminate or significantly reduce saturated fatty acids and high fructose corn syrup from diet. (9) DVT prophylaxis Current Visit: No Status: Acute Assessment and Plan: Subcutaneous heparin - Time Spent with Patient Total time spent is greater than 50% in coordination of care (as documented) at patient's floor/unit and/or counseling patient: Internal Medicine: Result - Labs CBC & Chem 7: 11/19/18 02:05 11/18/18 07:00 Labs: Short CBC 11/19/18 Range/Units 02:05 WBC 6.6 (4.3-11.1) K/mcL Hgb 10.8 L (11.5-15.4) g/dL Hct 32.1 L (35.3-44.9) % Plt Count 185 (140-400) K/mcL Neutrophils # 3.3 (1.6-8.9) K/mcL - ABG Interpretation ABG results: PT/INR, D-dimer PT 12.9 Seconds (9.4-12.1) H 11/16/18 09:27
[2018-11-19] MEDS: Venlafaxine XR (24 HR) 75 MG CAP.ER.24H PO SCH (10:04)
[2018-11-19] MEDS: Venlafaxine XR (24 HR) 150 MG CAP.ER.24H PO SCH (10:04)
[2018-11-19] MEDS: Folic Acid 1 MG TABLET PO SCH (10:04)
[2018-11-19] MEDS: Multivit/Ca/Min/Fe/FA 1 TAB TABLET PO SCH (10:04)
[2018-11-19] MEDS: Magnesium Oxide 400 MG TABLET PO SCH (10:04)
[2018-11-19] MEDS: Thiamine (B-1) 100 MG TABLET PO SCH (10:04)
[2018-11-19] MEDS: amLODIPine 5 MG TABLET PO SCH (10:04)
[2018-11-20] MEDS: Nicotine 21 MG PATCH.TD24 TD SCH ×2 (00:15→23:43)
[2018-11-20 04:24] LABS: BUN/Creatinine Ratio 18 (6-26); Blood Urea Nitrogen 9 mg/dL (8-23); Calcium 8.5 mg/dL (8.6-10.3); Carbon Dioxide 27 mEq/L (23-29); Chloride 98 mEq/L (98-107); Glucose 100 mg/dL (70-105); Magnesium 1.5 mg/dL (1.6-2.6); Osmolality,Calculated 277 (280-300); Potassium 3.7 mEq/L (3.5-5.1); Sodium 134 mEq/L (136-145); eGFR For African Americans > 60 (> 60); eGFR For Non-African Americans > 60 (> 60)
[2018-11-20] MEDS: *HR* Heparin 5,000 UNIT/ML VIAL SQ SCH ×2 (05:08→18:21)
[2018-11-20] MEDS: Levothyroxine 25 MCG TABLET PO SCH (05:11)
[2018-11-20] MEDS: Folic Acid 1 MG TABLET PO SCH (08:07)
[2018-11-20] MEDS: Venlafaxine XR (24 HR) 150 MG CAP.ER.24H PO SCH (08:07)
[2018-11-20] MEDS: Venlafaxine XR (24 HR) 75 MG CAP.ER.24H PO SCH (08:07)
[2018-11-20] MEDS: amLODIPine 5 MG TABLET PO SCH (08:07)
[2018-11-20] MEDS: Multivit/Ca/Min/Fe/FA 1 TAB TABLET PO SCH (08:07)
[2018-11-20] MEDS: Thiamine (B-1) 100 MG TABLET PO SCH (08:07)
[2018-11-20] MEDS: Magnesium Oxide 400 MG TABLET PO SCH (08:07)
--- NOTE | 2018-11-20 09:09 | Internal Med Progress Note ---
<Alyse Melton - Last Filed: 11/20/18 10:35> Hospitalist Progress Note - Encounter Date of Encounter: 11/20/18 - Exam Vitals: Temp Pulse Resp BP Pulse Ox 98.3 F 84 18 134/89 94 11/20/18 07:48 11/20/18 07:48 11/20/18 07:48 11/20/18 07:48 11/20/18 07:48 - Assessment and Plan (1) Hyponatremia Current Visit: Yes Status: Acute (2) Hypokalemia Current Visit: Yes Status: Acute (3) Chronic alcohol dependence, continuous Current Visit: Yes Status: Chronic (4) DVT prophylaxis Current Visit: No Status: Acute (5) Hypoalbuminemia Current Visit: Yes Status: Acute (6) Frail elderly Current Visit: Yes Status: Acute (7) Weakness Current Visit: Yes Status: Acute (8) Abnormal liver function test Current Visit: Yes Status: Acute (9) Nicotine use disorder Current Visit: Yes Status: Acute - Time Spent with Patient Total time spent is greater than 50% in coordination of care (as documented) at patient's floor/unit and/or counseling patient: Internal Medicine: Result - Labs CBC & Chem 7: 11/19/18 02:05 11/20/18 03:17 Labs: BMP 11/20/18 03:17 Sodium 134 L Potassium 3.7 Chloride 98 Carbon Dioxide 27 BUN 9 Creatinine 0.51 L Glucose 100 Calcium 8.5 L - ABG Interpretation ABG results: PT/INR, D-dimer PT 12.9 Seconds (9.4-12.1) H 11/16/18 09:27 Consult Discharge Plan - Plan Instructions: Alcohol Intoxication (DC), Cigarette Smoking and Your Health, Customer Service Dispatcher (GEN) Referrals: Maryjane Do DO [Primary Care Provider] - 11/23/18 9:30 am Janet Villanueva MD [Partnered Physician] - Prescriptions: Magnesium Oxide [Mag-Ox] 400 mg PO DAILY 30 Days #30 tablet - Attending Attestation I examined this patient and my medical decision-making was reviewed with the Resident Physician Dr Holm. I agree with the documented findings, disposition and treatment plan as described except to the extent set forth below. Ms Salazar is admitted with dehydration, hyponatremia, malnutrition and generalized weakness. She is medically stable for dc to snf awake, eating breakfast. no family at bedside. has no complaints. weakness and energy level improving gen- alert, awake,appears stated age cv- reg rate and rhythm, normal S1S2, no le edema lungs- ctabl, normal resp effort on room air neuro- AAOx3, can move all ext without focal deficits Hyponatremia, improved-stable with oral intake, will repeat level in am since she will still be here Early Liver Cirrhosis Abnormal LFTs - appreciate GI recs, fu pending labs outpt with GI in follow up Etoh Abuse not in withdrawal- no w/d while here, after inpt physical rehab she will go to inpt detox program Hypothyroidism, elevated TSH due to non compliance with medication- resumed home dosing, fu with PCP outpt for recheck of lab Hypomagnesemia- IV repletion today further diagnoses and plan as noted by resident hope to have her dc to rehab tomorrow, remains medically stable for dc <Beverley Holm - Last Filed: 11/20/18 13:03> Hospitalist Progress Note - Encounter Date of Encounter: 11/20/18 Time of Encounter: 10:28 - Subjective Interval History: Patient seen examined at bedside she is sleeping in the bed. One spoken she denies any complaints. She denies chest pain, shortness of breath, fever, chills. - Exam Vitals: Temp Pulse Resp BP Pulse Ox 98.3 F 84 18 134/89 94 11/20/18 07:48 11/20/18 07:48 11/20/18 07:48 11/20/18 07:48 11/20/18 07:48 Exam: Gen.: Vitals noted. No acute distress. AAOx3 HEENT: oropharynx clear, Normocephalic, atraumatic Cardiac: RRR, no murmur, +S1/S2 Pulmonary: CTA bilaterally, no wheezes, rales or rhonchi, equal chest expansion Abdomen: soft, nontender, Bowel sounds noted, no guarding MSK: no joint swelling noted Extremities: no BLE edema, nontender calf, no cyanosis or clubbing Neuro: A&Ox3, moves all extremities, no focal deficits Psych: Appropriate mood and behavior - Assessment and Plan (1) Weakness Current Visit: Yes Status: Acute Assessment and Plan: Most likely due to oral intake. Patient has long-standing history of alcoholism. Patient also noted to be hypothyroid and is reportedly noncompliant with taking her levothyroxine. -TSH elevated -PT/OT consulted and recommends SNF. Awaiting placement likely discharge tomorrow. -nutrition consulted -continue with ensure with meal -continue levothyroxine (2) Hyponatremia Current Visit: Yes Status: Acute Assessment and Plan: Hyponatremia that is likely secondary to her poor oral intake. Sodium at admission 125. No focal neurologic deficits or seizures. Sodium was slowly corrected during admission with IV fluids. -Sodium 134 -Improved and at baseline -continue oral diet (3) Hypokalemia Current Visit: Yes Status: Acute Assessment and Plan: Hypokalemia at admission potassium 2.5 -magnesium 1.5 -potassium WNL -patient not complaining of palpitations -continue to monitor potassium and magnesium and supplement as needed -magnesium supplements today (4) Chronic alcohol dependence, continuous Current Visit: Yes Status: Chronic Assessment and Plan: Reports last alcohol use 6 weeks ago, will start CIWA protocol for patient's safety and monitor for signs/symptoms of withdrawal. Plan: - C/W daily multivitamin, thiamine, folate supplements. - C/W CIWA protocol. (5) Hypoalbuminemia Current Visit: Yes Status: Acute Assessment and Plan: This is most likely due to poor all intake due to alcoholism. Nutrition consulted. Continue with ensure drinks (6) Frail elderly Current Visit: Yes Status: Acute Assessment and Plan: PT/OT recommend it SNF on discharge (7) Abnormal liver function test Current Visit: Yes Status: Acute Assessment and Plan: This is likely secondary to her alcoholism causing liver disease. -INR and platelets WNL -AST 65, ALT 45 -total bilirubin 2.6 -RUQ US shows irregular appearing liver capsule suggesting hepatic fibrosis or early cirrhosis; s/p cholecystectomy -Hepatitis panel non-reactive -APAP level negative plan -GI consulted and recommended complete liver workup (AFP, alpha-1 antitrypsin, VADIM, ANCA, ceruloplasmin, F actin, ferritin, AMA, fibrosis score). They will now follow up with her outpatient. (8) Nicotine use disorder Current Visit: Yes Status: Acute Assessment and Plan: Nicotine patch (9) DVT prophylaxis Current Visit: No Status: Acute Assessment and Plan: Subcutaneous heparin - Time Spent with Patient Total time spent is greater than 50% in coordination of care (as documented) at patient's floor/unit and/or counseling patient: Internal Medicine: Result - Labs CBC & Chem 7: 11/19/18 02:05 11/20/18 03:17 Labs: BMP 11/20/18 03:17 Sodium 134 L Potassium 3.7 Chloride 98 Carbon Dioxide 27 BUN 9 Creatinine 0.51 L Glucose 100 Calcium 8.5 L - ABG Interpretation ABG results: PT/INR, D-dimer PT 12.9 Seconds (9.4-12.1) H 11/16/18 09:27
[2018-11-20 09:16] LABS: F-Actin (sm muscle) Ab IgG 3 Units (0-19)
[2018-11-20 09:17] LABS: AFP Tumor Marker Non-Pregnant 7 ng/mL (0-9); ANA IgG by ELISA NONE DETECTED (None Detected); Myeloperoxidase Ab 0 AU/mL (0-19); Serine Protease-3 Antibody 0 AU/mL (0-19)
[2018-11-20] MEDS: traZODone 50 MG TABLET PO SCH (23:43)
[2018-11-21] MEDS: *HR* Heparin 5,000 UNIT/ML VIAL SQ SCH ×2 (06:07→17:39)
[2018-11-21] MEDS: Levothyroxine 25 MCG TABLET PO SCH (06:07)
--- NOTE | 2018-11-21 08:41 | Internal Med Progress Note ---
<Alyse Melton - Last Filed: 11/21/18 09:55> Hospitalist Progress Note - Encounter Date of Encounter: 11/21/18 - Exam Vitals: Temp Pulse Resp BP Pulse Ox 98.5 F 83 16 138/93 97 11/21/18 07:15 11/21/18 07:15 11/21/18 07:15 11/21/18 07:15 11/21/18 07:15 - Assessment and Plan (1) Hyponatremia Current Visit: Yes Status: Acute (2) Hypokalemia Current Visit: Yes Status: Acute (3) Chronic alcohol dependence, continuous Current Visit: Yes Status: Chronic (4) DVT prophylaxis Current Visit: No Status: Acute (5) Hypoalbuminemia Current Visit: Yes Status: Acute (6) Frail elderly Current Visit: Yes Status: Acute (7) Weakness Current Visit: Yes Status: Acute (8) Abnormal liver function test Current Visit: Yes Status: Acute (9) Nicotine use disorder Current Visit: Yes Status: Acute - Time Spent with Patient Total time spent is greater than 50% in coordination of care (as documented) at patient's floor/unit and/or counseling patient: Internal Medicine: Result - Labs CBC & Chem 7: 11/19/18 02:05 11/20/18 03:17 - ABG Interpretation ABG results: PT/INR, D-dimer PT 12.9 Seconds (9.4-12.1) H 11/16/18 09:27 Consult Discharge Plan - Plan Instructions: Alcohol Intoxication (DC), Cigarette Smoking and Your Health, [employer] (GEN) Referrals: Maryjane Do DO [Primary Care Provider] - 11/23/18 9:30 am Janet Villanueva MD [Partnered Physician] - Prescriptions: Magnesium Oxide [Mag-Ox] 400 mg PO DAILY 30 Days #30 tablet - Attending Attestation I examined this patient and my medical decision-making was reviewed with the Resident Physician Dr Brown. I agree with the documented findings, disposition and treatment plan as described except to the extent set forth below. Ms Salazar is admitted with dehydration, hyponatremia, malnutrition and generalized weakness. She is medically stable for dc to snf awake, eating breakfast. son at bedside. cont to improve daily. awaiting rehab placement. no concerns or questions gen- alert, awake,appears stated age cv- reg rate and rhythm, , no le edema lungs- ctabl, normal resp effort on room air neuro- AAOx3, can move all ext with equal strength throughout Hyponatremia, improved-stable with oral intake Early Liver Cirrhosis Abnormal LFTs - appreciate GI recs, fu pending labs outpt with GI in follow up Etoh Abuse not in withdrawal- no w/d while here, after inpt physical rehab she will go to inpt detox program Hypothyroidism, elevated TSH due to non compliance with medication- resumed home dosing, fu with PCP outpt for recheck of lab Hypomagnesemia- daily oral supplementation further diagnoses and plan as noted by resident dc to rehab today, remains medically stable for dc <Ean Brown - Last Filed: 11/21/18 13:12> Hospitalist Progress Note - Encounter Date of Encounter: 11/21/18 Time of Encounter: 08:30 - Subjective Interval History: When seen today patient was resting comfortably in her bed. She denied any abdominal pain, nausea, or vomiting. Denied any chest pain or shortness of breath. Denied any fever or cough. Patient has been able to tolerate her diet. - Exam Vitals: Temp Pulse Resp BP Pulse Ox 98.5 F 83 16 138/93 97 11/21/18 07:15 11/21/18 07:15 11/21/18 07:15 11/21/18 07:15 11/21/18 07:15 Exam: GENERAL APPEARANCE: Obsese, alert and cooperative, and appears to be in no acute distress. HEAD: normocephalic. EYES: PERRL, EOMI. Fundi normal, vision is grossly intact. EARS: External auditory canals and tympanic membranes clear, hearing grossly intact. NOSE: No nasal discharge. THROAT: Oral cavity and pharynx normal. No inflammation, swelling, exudate, or lesions. NECK: Neck supple, non-tender without lymphadenopathy, masses or thyromegaly. CARDIAC: Normal S1 and S2. No S3, S4 or murmurs. Rhythm is regular. There is no peripheral edema, cyanosis or pallor. Extremities are warm and well perfused. Capillary refill is less than 2 seconds. No carotid bruits. LUNGS: Clear to auscultation and percussion without rales, rhonchi, wheezing or diminished breath sounds. ABDOMEN: Positive bowel sounds. Soft, nondistended, nontender. No guarding or rebound. No masses. EXTREMITIES: No significant deformity or joint abnormality. No edema. Peripheral pulses intact. No varicosities. LOWER EXTREMITY: Examination of both feet reveals all toes to be normal in size and symmetry, normal range of motion, normal sensation with distal capillary filling of less than 2 seconds without tenderness, swelling, discoloration, nodules, weakness or deformity. SKIN: Skin normal color, texture and turgor with no lesions or eruptions. PSYCHIATRIC: The mental examination revealed the patient was oriented to person, place, and time. Patient displayed an improved affect. Good eye contact. - Assessment and Plan (1) Weakness Current Visit: Yes Status: Acute Assessment and Plan: Most likely due to oral intake. Patient has long-standing history of alcoholism. Patient also noted to be hypothyroid and is reportedly noncompliant with taking her levothyroxine. -TSH elevated -PT/OT consulted and recommends SNF. Awaiting placement. -nutrition consulted -continue with ensure with meal -continue levothyroxine (2) Abnormal liver function test Current Visit: Yes Status: Acute Assessment and Plan: This is likely secondary to her alcoholism causing liver disease. -INR and platelets WNL -AST 65, ALT 45 -total bilirubin 2.6 -RUQ US shows irregular appearing liver capsule suggesting hepatic fibrosis or early cirrhosis; s/p cholecystectomy -Hepatitis panel non-reactive -APAP level negative plan -GI consulted and recommended complete liver workup (AFP, alpha-1 antitrypsin, VADIM, ANCA, ceruloplasmin, F actin, ferritin, AMA, fibrosis score). They will now follow up with her outpatient. (3) Hepatic steatosis Current Visit: Yes Status: Acute (4) Chronic alcohol dependence, continuous Current Visit: Yes Status: Chronic Assessment and Plan: Reports last alcohol use 6 weeks ago, started on CIWA protocol for patient's safety and monitor for signs/symptoms of withdrawal. Plan: - C/W daily multivitamin, thiamine, folate supplements. - C/W CIWA protocol. (5) Hypokalemia Current Visit: Yes Status: Resolved Assessment and Plan: Potassium level yesterday at 3.7. (6) Hypoalbuminemia Current Visit: Yes Status: Acute Assessment and Plan: This is most likely due to poor all intake due to alcoholism. Nutrition consulted. Continue with ensure drinks (7) Frail elderly Current Visit: Yes Status: Acute Assessment and Plan: PT/OT recommend it SNF on discharge (8) Nicotine use disorder Current Visit: Yes Status: Acute Assessment and Plan: Nicotine patch (9) Elevated TSH Current Visit: Yes Status: Acute Assessment and Plan: TSH 17.2 Free T4 of 0.97 Admits to not taking levothyroxine as prescribed May be contributing to depressed mood, poor appetite Plan: - C/W home dose levothyroxine, will need repeat TSH in 8 weeks. DVT Prophylaxis: - Heparin subcutaneous. - Time Spent with Patient Total time spent is greater than 50% in coordination of care (as documented) at patient's floor/unit and/or counseling patient: Internal Medicine: Result - Labs CBC & Chem 7: 11/19/18 02:05 11/20/18 03:17 - ABG Interpretation ABG results: PT/INR, D-dimer PT 12.9 Seconds (9.4-12.1) H 11/16/18 09:27
[2018-11-21] MEDS: Multivit/Ca/Min/Fe/FA 1 TAB TABLET PO SCH (09:46)
[2018-11-21] MEDS: Venlafaxine XR (24 HR) 75 MG CAP.ER.24H PO SCH (09:46)
[2018-11-21] MEDS: Folic Acid 1 MG TABLET PO SCH (09:46)
[2018-11-21] MEDS: amLODIPine 5 MG TABLET PO SCH (09:46)
[2018-11-21] MEDS: Magnesium Oxide 400 MG TABLET PO SCH (09:46)
[2018-11-21] MEDS: Venlafaxine XR (24 HR) 150 MG CAP.ER.24H PO SCH (09:46)
[2018-11-21] MEDS: Thiamine (B-1) 100 MG TABLET PO SCH (09:46)
[2018-11-21 15:19] VITALS: BP 131/95
== END 2018-11-21 18:39 | DRG 641 ==
LOC: 2NENU 16:47 → EMEROOARM 16:47 → SUATTDRO 21:44 → 2NENU 22:48
PROVIDERS: ADMIT Family Medicine; ATTEND Internal Medicine